=== PATIENT | female | born 1950 | race Caucasian/White ===

== ENCOUNTER 2016-07-26 10:17 | Inpatient (IN) | payer MEDICARE, MEDICAID ==
--- NOTE | 2016-07-26 10:26 | EDPRACDOC ---
- General Information Information Source: Patient, Retirement, [employer] Mode Of Arrival: Ambulance - History of Present Illness Onset: 3 days HPI: Patient reports being treated for PNA, EMS was called out for allergic reaction although patient has increased SOB since this AM, and feeling "jittery" after Albuterol and taking Levaquin. Patient reports she has had a productive cough - yellow sputum, fever, chills, nausea. Had PNA on 07/10/16, then found out again 3 days ago she had it again. Patient denies CP. No ear pain, sore throat, abdominal pain or vomiting. Patient has no rash, itching, no mouth/tongue swelling, no evidence of an allergic reaction. EMS found patient at 80% on 2L O2 which she wears continuously. Shortness of Breath: Moderate Relevant History: Reports: COPD Cough: Reports: Productive, Yellow Ear Symptoms: Reports: None SOB Worsens with: Reports: Movement, Coughing, Lying Flat Associated Signs and symptoms: Reports: Cough, Fever, Nausea <Brinda Doe - Last Filed: 07/26/16 10:27> <Amanda Higginbotham - Last Filed: 07/26/16 11:48> - General Information Chief Complaint: Dyspnea/Resp distress Stated Complaint: SHOB Time Seen by Provider: 07/26/16 10:19 Home Medications: Home Medications Acetaminophen [Tylenol Extra Strength] 1,000 mg PO Q6H PRN 07/26/16 Albuterol/Ipratropium Neb [Duoneb] 3 ml NEB Q4H PRN 07/26/16 Albuterol/Ipratropium Neb [Duoneb] 3 ml NEB Q6H PRN 07/26/16 Alprazolam [Xanax] 0.5 mg PO TID 07/26/16 Alprazolam [Xanax] 1 mg PO QHS 07/26/16 Buspirone HCl [Buspar] 15 mg PO BID 07/26/16 Ergocalciferol (Vitamin D2) [Drisdol] 50,000 unit PO .MONTHLY 07/26/16 Fenofibrate,Micronized [Fenofibrate] 67 mg PO DAILY 07/26/16 Ferrous Sulfate [Iron] 325 mg PO DAILY 07/26/16 Fluticasone Propionate [Flonase] 2 spray NADER DAILY PRN 07/26/16 Fluticasone Propionate [Flovent Hfa-220] 2 puff INH BID 07/26/16 Furosemide [Lasix] 40 mg PO DAILY 07/26/16 Gabapentin 100 mg PO BID 07/26/16 Guaifenesin [Robitussin] 10 ml PO Q6H PRN 07/26/16 Insulin Glargine [Lantus Pen] 30 unit SQ BID 07/26/16 Levofloxacin [Levaquin] 750 mg PO .DAILY X 7D 07/26/16 Omeprazole 40 mg PO BID 07/26/16 Ondansetron HCl [Zofran] 8 mg PO TID 07/26/16 Oxycodone HCl [Roxicodone] 5 mg PO Q6H PRN 07/26/16 Oxycodone HCl [Roxicodone] 5 mg PO TID 07/26/16 Phosp Acid/Dextrose/Fructose [Emetrol Oral Solution] 2 tbsp PO [id number] PRN Potassium Chloride [Klor-Con M20] 40 meq PO DAILY 07/26/16 Ranitidine HCl 150 mg PO BID 07/26/16 Sennosides [Senexon] 17.2 mg PO DAILY PRN 07/26/16 Sertraline HCl 100 mg PO DAILY 07/26/16 Sucralfate [Carafate] 1 gm PO QID 07/26/16 Temazepam [Restoril] 7.5 mg PO QHS 07/26/16 Tiotropium [place] [Spiriva] 18 mcg INH DAILY 07/26/16 Trazodone HCl [Desyrel] 50 mg PO QHS 07/26/16 Vitamin B Complex [B Complete] 1 tab PO DAILY 07/26/16 Allergies/Adverse Reactions: Allergies Allergy/AdvReac Type Severity Reaction Status Date / Time aspirin Allergy unknown Verified 08/10/12 20:16 NSAIDS (Non-Steroidal Allergy unknown Verified 08/10/12 20:16 Anti-Inflamma Penicillins Allergy unknown Verified 08/10/12 20:16 saccharin Allergy unknown Verified 08/10/12 20:16 Sulfa (Sulfonamide Allergy unknown Verified 08/10/12 20:16 Antibiotics) [Sulfa(Sulfonamide Antibiotics)] Tetracyclines Allergy unknown Verified 08/10/12 20:16 - Treatment Prior to ED Arrival Reported Medications/Treatment T[employer] APPRAISER Meds/Treatments Given O2 via Cannula,Neb Treatment(Albuterol) EMS Treatment ALS,EKG IV Yes <Amanda Higginbotham - Last Filed: 07/26/16 11:48> ED Past Medical History - History Reviewed Yes Nurses notes reviewed and agree except as marked - Patient Medical History Neurological History: Denies: Cerebrovascular Accident, Seizures, Dementia, Epilepsy, [place] Syndrome, Parkinson's, Multiple Sclerosis, Myasthenia Gravis Cardiac History: Reports: Hypertension. Denies: Coronary Artery Disease, Atrial Fibrillation, Congestive Heart Failure, Heart Attack, Pacemaker, Cardiomyopathy, Valvular Heart Disease, Syncope Respiratory History: Reports: COPD, Pneumonia. Denies: Asthma, Chronic Bronchitis, Emphysema, Pulmonary Embolism GI/ History: Reports: Urinary Tract Infection. Denies: Renal Disease, Renal Failure, Kidney Stones, Liver Failure, Ulcer, Pancreatitis Musculoskeletal History: Reports: Arthritis, Osteoarthritis. Denies: Gout, Rheumatoid Arthritis Psychological History: Reports: Depression, Anxiety. Denies: Schizophrenia, Bipolar Disorder Systemic History: Reports: Diabetes. Denies: Cancer Surgical History: Reports: Hysterectomy, Hernia Surgery, Tonsillectomy/ Adnoidectomy - Family Medical History Reports: Hypertension, Diabetes, Cancer (Father-prostate). Denies: Stroke, Cardiac Disorders <Brinda Doe - Last Filed: 07/26/16 10:27> EDM Review of Systems - Review of Systems ROS Negative Except as Marked: Yes All systems reviewed and were negative except as marked Constitutional: Chills, Fever Eyes: No Symptoms Reported Ears: No Symptoms Reported Throat: No Symptoms Reported Nose: No Symptoms Reported Mouth: No Symptoms Reported Respiratory: Cough, Shortness of Breath, Wheezing, Sputum Cardiovascular: No Symptoms Reported Gastrointestinal: Nausea Genitourinary: No Symptoms Reported Neurological: No Symptoms Reported Musculoskeletal: No Symptoms Reported <Brinda Doe - Last Filed: 07/26/16 10:27> - Physical Exam Constitutional: Alert (Awake), No apparent distress Oriented to: Time, Person, Place Last recorded Vital Signs: Oxygen Pulse Oxygen Saturation O2 Device Oxygen Flow Rate Fraction of Inspired Oxygen ( FIO2) - HEENT Head: Normal ( normocephalic) Eye Exam: Normal (PERRL, EOMI, Sclera white) Nose: No Symptoms Reported (septum midline) Neck: Normal (FROM, trachea at midline) - Respiratory/Cardiovascular Respiratory: Rhonchi, Wheezes Cardiovascular: Normal (RRR without murmur, gallop or rub) - GI Auscultation: Normal (NABS) Tenderness: Non tender - Musculoskeletal Back: Normal (Non-Tender) Extremities: Normal (Normal tone, Pulses 2+ No cyanosis or edema, FROM) - Integumentary Skin: Normal, Warm, Dry Lymphatics: Normal (no adenopathy) - Neurologic Memory Impaired: Normal Motor Function: Normal (Normal tone, Pulses 2+ No cyanosis or edema, FROM) Mood Description: Normal Thought: Coherent <Brinda Doe - Last Filed: 07/26/16 10:27> - Physical Exam Last recorded Vital Signs: Last Vital Signs Temp 98.9 F 07/26/16 10: Pulse 84 07/26/16 11:33 Resp 20 07/26/16 11:33 BP 115/72 07/26/16 11:33 Pulse Ox 92 07/26/16 11:33 Oxygen Pulse Oxygen Saturation 92 O2 Device BiPAP Oxygen Flow Rate 2 Fraction of Inspired Oxygen ( 40 FIO2) <Amanda Higginbotham - Last Filed: 07/26/16 11:48> ED SOB MDM - EKG EKG #1 EKG Time: 10:25 -: Yes EKG interpreted by me Rate: bpm: 87 [place]: Normal Rhythm: NSR Block: None ST: Ant <Brinda Doe - Last Filed: 07/26/16 10:27> - Results Result Diagrams: 07/26/16 10:35 07/26/16 10:35 Results: WBC 7.6 xk/uL (3.8-10.8) 07/26/16 10:35 RBC 4.78 xM/uL (4.20-5.40) 07/26/16 10:35 Hgb 12.1 g/dL (12.0-16.0) 07/26/16 10:35 Hct 38.7 % (36-47) 07/26/16 10:35 MCV 81 fL (81-99) 07/26/16 10:35 MCH 25.3 pg (27-32) L 07/26/16 10:35 MCHC 31.3 g/dl (33-36) L 07/26/16 10:35 RDW 17.4 % (11.5-14.5) H 07/26/16 10:35 Plt Count 227 xk/uL (130-400) 07/26/16 10:35 MPV 7.0 fL (7.4-10.4) L 07/26/16 10:35 Neut % (Auto) 83.5 % (45-76) H 07/26/16 10:35 Lymph % (Auto) 9.8 % (17-44) L 07/26/16 10:35 [place] % (Auto) 5.4 % (3-10) 07/26/16 10:35 Eos % (Auto) 0.9 % (0-5) 07/26/16 10:35 Baso % (Auto) 0.4 % (0-2) 07/26/16 10:35 Absolute Neuts (auto) 6.31 xk/uL (1.7-8.2) 07/26/16 10:35 Absolute Lymphs (auto) 0.68 xk/uL (0.65-4.75) 07/26/16 10:35 PT 10.6 SEC (9.2-11.2) 07/26/16 10:35 INR 1.0 07/26/16 10:35 APTT 24.3 SEC (22-35) 07/26/16 10:35 Puncture Site Right radial 07/26/16 10:36 pH 7.410 pH UNITS (7.35-7.45) 07/26/16 10:36 pCO2 77.0 mmHg (35-45) H* 07/26/16 10:36 pO2 44.0 mmHg (80-100) L* 07/26/16 10:36 HCO3 48.8 MMOL/L (22-26) H 07/26/16 10:36 Total CO2 51.2 MMOL/L (23-27) H 07/26/16 10:36 Base Excess 19.7 (+/- 2) H 07/26/16 10:36 FiO2 % 2lpmnc 07/26/16 10:36 Specimen Drawn By Arlene 07/26/16 10:36 Sodium 139 mEq/L (137-146) 07/26/16 10:35 Potassium 4.5 mEq/L (3.5-5.1) 07/26/16 10:35 Chloride 92 mEq/L (98-107) L 07/26/16 10:35 Carbon Dioxide 39 mMOL/L (22-33) H 07/26/16 10:35 Anion Gap 13 mEq/L (8-16) 07/26/16 10:35 BUN 14 MG/DL (7-17) 07/26/16 10:35 Creatinine 0.70 MG/DL (0.52-1.04) 07/26/16 10:35 Estimated GFR (MDRD) > 60 mL/min (>=60) 07/26/16 10:35 Glucose 118 MG/DL (70-99) H 07/26/16 10:35 Calculated Osmolality 270 MOs/Kg (270-290) 07/26/16 10:35 Calcium 9.1 MG/DL (8.4-10.2) 07/26/16 10:35 Corrected Calcium 9.4 MG/DL (8.4-10.2) 07/26/16 10:35 Total Bilirubin 0.4 MG/DL (0.2-1.3) 07/26/16 10:35 AST 19 IU/L (14-36) 07/26/16 10:35 ALT 21 IU/L (9-52) 07/26/16 10:35 Alkaline Phosphatase 73 IU/L (55-165) 07/26/16 10:35 Creatine Kinase 34 IU/L (30-134) 07/26/16 10:35 Troponin I < 0.01 ng/mL (<.04) 07/26/16 10:35 [id number] Pept 140 pg/mL (0-900) 07/26/16 10:35 Total Protein 7.0 G/DL (6.3-8.2) 07/26/16 10:35 Albumin 3.7 G/DL (3.5-5.0) 07/26/16 10:35 Urine Color Yellow 07/26/16 10:45 Urine Clarity Hazy 07/26/16 10:45 Urine pH 7.0 (5.0-8.0) 07/26/16 10:45 Ur Specific [place] 1.010 (1.003-1.035) 07/26/16 10:45 Urine Protein Neg (NEG/TRACE) 07/26/16 10:45 Urine Glucose (UA) Neg (NEGATIVE) 07/26/16 10:45 Urine Ketones Neg (NEGATIVE) 07/26/16 10:45 Urine Occult Blood Neg (NEG/TRACE) 07/26/16 10:45 Urine Nitrite Neg (NEGATIVE) 07/26/16 10:45 Urine Bilirubin Neg (NEGATIVE) 07/26/16 10:45 Urine Urobilinogen 0.2 MG/DL (0-1) 07/26/16 10:45 Ur Leukocyte Esterase Neg (NEGATIVE) 07/26/16 10:45 Urine RBC 0-2 (0-5) 07/26/16 10:45 Urine WBC 0-2 (0-5) 07/26/16 10:45 Ur Epithelial Cells 3+ 07/26/16 10:45 Urine Bacteria 2+ (NEG/FEW) H 07/26/16 10:45 Hyaline Casts 2-5 (0-2) H 07/26/16 10:45 Urine Mucus Sm amt (NEG/OCC) 07/26/16 10:45 Lab Results 07/26/16 07/26/16 07/26/16 10:45 10:36 10:35 WBC RBC Hgb Hct MCV MCH MCHC RDW Plt Count MPV Neut % (Auto) Lymph % (Auto) [place] % (Auto) Eos % (Auto) Baso % (Auto) Absolute Neuts (auto) Absolute Lymphs (auto) PT 10.6 INR 1.0 APTT 24.3 Puncture Site Right radial pH 7.410 pCO2 77.0 H* pO2 44.0 L* HCO3 48.8 H Total CO2 51.2 H Base Excess 19.7 H FiO2 % 2lpmnc Specimen Drawn By Belja Sodium Potassium Chloride Carbon Dioxide Anion Gap BUN Creatinine Estimated GFR (MDRD) Glucose Calculated Osmolality Calcium Corrected Calcium Total Bilirubin AST ALT Alkaline Phosphatase Creatine Kinase Troponin I Qvm-M-Ijhlyjoqsia Pept Total Protein Albumin Urine Color Yellow Urine Clarity Hazy Urine pH 7.0 Ur Specific [place] 1.010 Urine Protein Neg Urine Glucose (UA) Neg Urine Ketones Neg Urine Occult Blood Neg Urine Nitrite Neg Urine Bilirubin Neg Urine Urobilinogen 0.2 Ur Leukocyte Esterase Neg Urine RBC 0-2 Urine WBC 0-2 Ur Epithelial Cells 3+ Urine Bacteria 2+ H Hyaline Casts 2-5 H Urine Mucus Sm amt 07/26/16 07/26/16 10:35 10:35 WBC 7.6 RBC 4.78 Hgb 12.1 Hct 38.7 MCV 81 MCH 25.3 L MCHC 31.3 L RDW 17.4 H Plt Count 227 MPV 7.0 L Neut % (Auto) 83.5 H Lymph % (Auto) 9.8 L [place] % (Auto) 5.4 Eos % (Auto) 0.9 Baso % (Auto) 0.4 Absolute Neuts (auto) 6.31 Absolute Lymphs (auto) 0.68 PT INR APTT Puncture Site pH pCO2 pO2 HCO3 Total CO2 Base Excess FiO2 % Specimen Drawn By Sodium 139 Potassium 4.5 Chloride 92 L Carbon Dioxide 39 H Anion Gap 13 BUN 14 Creatinine 0.70 Estimated GFR (MDRD) > 60 Glucose 118 H Calculated Osmolality 270 Calcium 9.1 Corrected Calcium 9.4 Total Bilirubin 0.4 AST 19 ALT 21 Alkaline Phosphatase 73 Creatine Kinase 34 Troponin I < 0.01 Tvn-[id number]-Hramcpthnms Pept 140 Total Protein 7.0 Albumin 3.7 Urine Color Urine Clarity Urine pH Ur Specific [place] Urine Protein Urine Glucose (UA) Urine Ketones Urine Occult Blood Urine Nitrite Urine Bilirubin Urine Urobilinogen Ur Leukocyte Esterase Urine RBC Urine WBC Ur Epithelial Cells Urine Bacteria Hyaline Casts Urine Mucus <Amanda Higginbotham - Last Filed: 07/26/16 11:48> ED Critical Care Note - Critical Care Note Total Time (mins): 30 <Amanda Higginbotham - Last Filed: 07/26/16 11:48> <Brinda Doe - Last Filed: 07/26/16 10:27> - Departure Yes I personally saw and evaluated the patient. Disposition: Admit IP To This Hospital Education/Counseling Given To: Patient Education/Counseling Given Regarding: Diagnosis, Treatment, Follow Up Decision to Admit Time: 11:48 Decision to admit date: 07/26/16 Decision to admit: from ED - Physician Consulted Hospitalist Provider Called: Yaa Veliz <Amanda Higginbotham - Last Filed: 07/26/16 11:48> - Departure Condition: Serious Final Diagnosis: REJI PNEUMONIA, COPD with acute exacerbation, Acute respiratory failure with hypoxia and hypercarbia Referrals: Bebo Samaniego MD [Primary Care Provider] - One Week
[2016-07-26] MEDS ORDERED: METHYLPREDNISOLONE 125 MG/2 ML VIAL IV ONE (10:31)
[2016-07-26 10:41] LABS: ALLEN'S TEST PASS; BEb 19.7 (+/- 2); TCO2 51.2 MMOL/L (23-27)
[2016-07-26 10:43] LABS: ABG Draw Site Right Radial
[2016-07-26] MEDS ORDERED: ONDANSETRON HCL 4 MG/2 ML VIAL IV ONE (10:46)
[2016-07-26 10:50] LABS: AUTOMATED BASOPHIL 0.4 % (0-2); AUTOMATED EOSINOPHIL 0.9 % (0-5); AUTOMATED LYMPH 9.8 % (17-44); AUTOMATED MONOCYTE 5.4 % (3-10); AUTOMATED NEUTROPHIL 83.5 % (45-76)
[2016-07-26 11:01] LABS: PARTIAL THROMB. TIME 24.3 SEC (22-35)
[2016-07-26] MEDS ORDERED: LORAZEPAM 2 MG/ML VIAL IV ONE (11:01)
[2016-07-26 11:02] LABS: BLOOD UREA NITROGEN 14 MG/DL (7-17); CALC CORRECTED 9.4 MG/DL (8.4-10.2); CALCIUM 9.1 MG/DL (8.4-10.2); CALCULATED OSMOLALITY 270 MOs/Kg (270-290); CHLORIDE 92 mEq/L (98-107); GLUCOSE 118 MG/DL (70-99); SODIUM LEVEL 139 mEq/L (137-146)
[2016-07-26 11:03] LABS: LEUKOCYTES/URINE NEG (NEGATIVE); NITRITE/URINE NEG (NEGATIVE); RBC/URINE 0-2 (0-5); URINE OCCULT BLOOD NEG (NEG/TRACE); WBC/URINE 0-2 (0-5)
[2016-07-26 11:24] LABS: CPK TOTAL WITH POSSIBLE MB 34 IU/L (30-134)
--- NOTE | 2016-07-26 11:40 | DIRPT ---
CLINICAL DATA: Shortness of breath with fever and congestion EXAM: PORTABLE CHEST 1 VIEW COMPARISON: Chest radiograph July 28, 2014; chest CT April 03, 2016 FINDINGS: There is persistent airspace opacity in the left upper lobe which probably represents post radiation therapy change given the appearance on prior CT. There is no new parenchymal lung opacity. Heart size and pulmonary vascularity are normal. No adenopathy is appreciable by radiography. There is postoperative change in the lower cervical spine. IMPRESSION: Probable post radiation therapy change in the left upper lobe with scarring. Superimposed infiltrate in this area cannot be excluded by radiography. Lungs elsewhere clear. Cardiac silhouette within normal limits. No well-defined parenchymal lung mass is seen by radiography. Electronically Signed By: Merritt Abraham III, M.D. On: 07/26/2016 11:37
[2016-07-26] MEDS ORDERED: CEFEPIME HYDROCHLORIDE 2 GM in D5W 100 ML IV ONE ×2 (11:44→12:30)
[2016-07-26 12:08] LABS: ALLEN'S TEST PASS; BEb 18.9 (+/- 2); TCO2 50.9 MMOL/L (23-27)
[2016-07-26 12:09] LABS: ABG Draw Site Right Radial
[2016-07-26 12:10] LABS: SPONT. RR 20 BR/MIN; SPONT. VT 400 ML
[2016-07-26] MEDS ORDERED: OXYCODONE HCL 5 MG TABLET PO PRN (12:38)
[2016-07-26] MEDS ORDERED: Albuterol/Ipratropium Neb 3 ML NEB NEB PRN (12:38)
[2016-07-26] MEDS ORDERED: SODIUM CHLORIDE 0.9% 5 ML FLUSH FLUSH PRN (12:41)
[2016-07-26] MEDS ORDERED: MAGNESIUM HYDROXIDE 30 ML BOTTLE PO PRN (12:41)
[2016-07-26] MEDS ORDERED: Aluminum;Magnesium;Simethicone 30 ML UDC PO PRN (12:41)
[2016-07-26] MEDS ORDERED: SODIUM CHLORIDE 0.9% 3 ML FLUSH FLUSH PRN (12:41)
--- NOTE | 2016-07-26 12:50 | HISTPHYS ---
- Chief Complaint Patient is resident of [facility], sent to ED for continued cough, congestion , fever and weakness. Patient diagnosed with Pneumonia on Saturday, started Levaquin and developed shaking and tremors today. EMS arrival patient on 2lmin via [place] and sats 80% - History of Present Illness Patient reports being treated for PNA, EMS was called out for allergic reaction although patient has increased SOB since this AM, and feeling "jittery" after Albuterol and taking Levaquin. Patient reports she has had a productive cough - yellow sputum, fever, chills, nausea. Had PNA on 07/10/16, then found out again 3 days ago she had it again. Patient denies CP. No ear pain, sore throat, abdominal pain or vomiting. Patient has no rash, itching, no mouth/tongue swelling, no evidence of an allergic reaction. EMS found patient at 80% on 2L O2 which she wears continuously. Shortness of Breath: Moderate Relevant History: Reports: COPD Cough: Reports: Productive, Yellow Ear Symptoms: Reports: None SOB Worsens with: Reports: Movement, Coughing, Lying Flat Associated Signs and symptoms: Reports: Cough, Fever, Nausea - Medical History Cardiac History: Reports: Hypertension. Denies: Coronary Artery Disease, Atrial Fibrillation, Congestive Heart Failure, Heart Attack, Pacemaker, Cardiomyopathy, Valvular Heart Disease, Syncope Respiratory History: Reports: COPD, Pneumonia. Denies: Asthma, Chronic Bronchitis, Emphysema, Pulmonary Embolism GI/ History: Reports: Urinary Tract Infection. Denies: Renal Disease, Renal Failure, Kidney Stones, Liver Failure, Ulcer, Pancreatitis Musculoskeletal History: Reports: Arthritis, Osteoarthritis. Denies: Gout, Rheumatoid Arthritis Systemic History: Reports: Diabetes. Denies: Cancer Neurological History: Denies: Cerebrovascular Accident, Seizures, Dementia, Epilepsy, Guillian-Pearland Syndrome, Parkinson's, Multiple Sclerosis, Myasthenia Gravis Psychological History: Reports: Depression, Anxiety. Denies: Schizophrenia, Bipolar Disorder - Surgical History Reports: Hysterectomy, Hernia Surgery, Tonsillectomy/Adnoidectomy - Medictions/Allergies Allergies aspirin Allergy (Verified 08/10/12 20:16) unknown Allergy info from [facility]. NSAIDS (Non-Steroidal Anti-Inflamma Allergy (Verified 08/10/12 20:16) unknown Allergy info from [facility] records. Penicillins Allergy (Verified 08/10/12 20:16) unknown Allergy info from [facility] records. saccharin Allergy (Verified 08/10/12 20:16) unknown Allergy info from [facility] records. Sulfa (Sulfonamide Antibiotics) [Sulfa(Sulfonamide Antibiotics)] Allergy ( Verified 08/10/12 20:16) unknown Allergy info from [facility] records. Tetracyclines Allergy (Verified 08/10/12 20:16) unknown Allergy info from [facility] records. Current Medication List: Reviewed Home Medications Acetaminophen [Tylenol Extra Strength] 1,000 mg PO Q6H PRN 07/26/16 Albuterol/Ipratropium Neb [Duoneb] 3 ml NEB Q4H PRN 07/26/16 Albuterol/Ipratropium Neb [Duoneb] 3 ml NEB Q6H 07/26/16 Alprazolam [Xanax] 0.5 mg PO TID 07/26/16 Alprazolam [Xanax] 1 mg PO QHS 07/26/16 Buspirone HCl [Buspar] 15 mg PO BID 07/26/16 Ergocalciferol (Vitamin D2) [Drisdol] 50,000 unit PO .MONTHLY 07/26/16 Fenofibrate,Micronized [Fenofibrate] 67 mg PO DAILY 07/26/16 Ferrous Sulfate [Iron] 325 mg PO DAILY 07/26/16 Fluticasone Propionate [Flonase] 2 spray NADER DAILY PRN 07/26/16 Fluticasone Propionate [Flovent Hfa-220] 2 puff INH BID 07/26/16 Furosemide [Lasix] 40 mg PO DAILY 07/26/16 Gabapentin 100 mg PO BID 07/26/16 Guaifenesin [Robitussin] 10 ml PO Q6H PRN 07/26/16 Insulin Glargine [Lantus Pen] 30 unit SQ BID 07/26/16 Levofloxacin [Levaquin] 750 mg PO .DAILY X 7D 07/26/16 Omeprazole 40 mg PO BID 07/26/16 Ondansetron HCl [Zofran] 8 mg PO TID 07/26/16 Oxycodone HCl [Roxicodone] 5 mg PO Q6H PRN 07/26/16 Oxycodone HCl [Roxicodone] 5 mg PO TID 07/26/16 Phosp Acid/Dextrose/Fructose [Emetrol Oral Solution] 2 tbsp PO [id number] PRN Potassium Chloride [Klor-Con M20] 40 meq PO DAILY 07/26/16 Ranitidine HCl 150 mg PO BID 07/26/16 Sennosides [Senexon] 17.2 mg PO DAILY PRN 07/26/16 Sertraline HCl 100 mg PO DAILY 07/26/16 Sucralfate [Carafate] 1 gm PO QID 07/26/16 Temazepam [Restoril] 7.5 mg PO QHS 07/26/16 Tiotropium [place] [Spiriva] 18 mcg INH DAILY 07/26/16 Trazodone HCl [Desyrel] 50 mg PO QHS 07/26/16 Vitamin B Complex [B Complete] 1 tab PO DAILY 07/26/16 - Family History Reports: Hypertension, Diabetes, Cancer (Father-prostate). Denies: Stroke, Cardiac Disorders - Social History Travel Outside of [place] in the Last 3 Months?: No Lives: in Assisted Living Smoking Status: Light tobacco smoker (less than 5/day) Social History: Denies: Alcohol Use, Substance Use Disorder - Review of Systems Yes Review of systems cannot be obtained due to the patient's medical condition - Physical Exam Vital Signs: Initial Vitals Temperature 98.9 F 07/26/16 10:17 Pulse Rate 92 07/26/16 10:17 Respiratory Rate 26 H 07/26/16 10:17 Blood Pressure 134/63 07/26/16 10:17 Pulse Oxygen Saturation 78 L 07/26/16 10:17 Constitutional: Distress (Moderate on continuous BiPAP) Oriented to: Time, Person - HEENT Head: Normal (normocephalic, atraumatic.), Other (No cervical lymphadenopathy. No supraclavicular lymphadenopathy. Neck: No palpable mass, supple , trachea midline.) Eye: Normal (pupils equal, reactive to light, and round; EOMI, Sclera white) Oropharynx: Normal (Pharynx: Moist without exudate,Gums-no swelling, No oropharyngeal lesions or erythema, Mucous membranes are dry.) Nose: No Symptoms Reported (septum midline, Nares patent, without discharge or bleeding.) Respiratory: Diminished, Rhonchi, Wheezes. negative: Tachypnea Cardiovascular: Normal (RRR , Normal S1, S2. No murmurs, rubs, or gallops. PMI non-displaced. Carotids: no carotid bruits. No bradycardia or tachycardia. DP pulses 2+ bilaterally.) - GI Auscultation: Normal (normal active sounds) Palpation: Normal (Soft,non distended,nontender. No hepatosplenomegaly.) Tenderness: Non tender (No rebound or guarding) Koroma's Sign: Negative - Musculoskeletal Back: Normal (Non-Tender) Extremities: Normal (Normal tone, DP pulses 2+ bilaterally, No cyanosis or edema bilaterally, FROM bilaterally.) - Integumentary Skin: Normal (Clean, dry, and intact. No rashes. No lesions.) Lymphatics: Normal (No cervical lymphadenopathy. No supraclavicular lymphadenopathy.) - Neurologic Memory Impaired: Normal Motor Function: Normal (Motor 5/5 throughout.Normal tone, Pulses 2+ No cyanosis or edema, FROM) Cranial Nerve: Normal (CN II-XII intact sensation, strength 5/5) Cerebellar: Normal (Babinski: toes downgoing bilaterally. Intact Finger to nose. Sensory grossly intact to light touch. Intact rapid alternating movements bilaterally. No pronator drift.) Mood Description: Normal (Fully oriented. Normal and appropriate affect.) Perception: Normal (Normal and appropriate affect.) - Focused CV Perfusion Exam Vital Signs: Last Vital Signs Temp 98.9 F 07/26/16 10:17 Pulse 80 07/26/16 12:03 Resp 22 07/26/16 12:03 BP 120/76 07/26/16 12:03 Pulse Ox 91 07/26/16 12:19 - Lab Results Laboratory Results - last 24 hr 07/26/16 07/26/16 07/26/16 10:35 10:35 10:35 WBC 7.6 RBC 4.78 Hgb 12.1 Hct 38.7 MCV 81 MCH 25.3 L MCHC 31.3 L RDW 17.4 H Plt Count 227 MPV 7.0 L Neut % (Auto) 83.5 H Lymph % (Auto) 9.8 L [place] % (Auto) 5.4 Eos % (Auto) 0.9 Baso % (Auto) 0.4 Absolute Neuts (auto) 6.31 Absolute Lymphs (auto) 0.68 PT 10.6 INR 1.0 APTT 24.3 Puncture Site pH pCO2 pO2 HCO3 Total CO2 Base Excess Vent Mode Spontaneous Rate FiO2 % Spontaneous Tidal Vol Specimen Drawn By Sodium 139 Potassium 4.5 Chloride 92 L Carbon Dioxide 39 H Anion Gap 13 BUN 14 Creatinine 0.70 Estimated GFR (MDRD) > 60 Glucose 118 H Calculated Osmolality 270 Calcium 9.1 Corrected Calcium 9.4 Total Bilirubin 0.4 AST 19 ALT 21 Alkaline Phosphatase 73 Creatine Kinase 34 Troponin I < 0.01 [id number]-Gbilfkcnfmx Pept 140 Total Protein 7.0 Albumin 3.7 Urine Color Urine Clarity Urine pH Ur Specific Sharon Urine Protein Urine Glucose (UA) Urine Ketones Urine Occult Blood Urine Nitrite Urine Bilirubin Urine Urobilinogen Ur Leukocyte Esterase Urine RBC Urine WBC Ur Epithelial Cells Urine Bacteria Hyaline Casts Urine Mucus 07/26/16 07/26/16 07/26/16 10:36 10:45 12:00 WBC RBC Hgb Hct MCV MCH MCHC RDW Plt Count MPV Neut % (Auto) Lymph % (Auto) [place] % (Auto) Eos % (Auto) Baso % (Auto) Absolute Neuts (auto) Absolute Lymphs (auto) PT INR APTT Puncture Site Right radial Right radial pH 7.410 7.390 pCO2 77.0 H* 80.0 H* pO2 44.0 L* 67.0 L HCO3 48.8 H 48.4 H Total CO2 51.2 H 50.9 H Base Excess 19.7 H 18.9 H Vent Mode Bipap12/6 Spontaneous Rate 20 FiO2 % 2lpmnc 0.40 Spontaneous Tidal Vol 400 Specimen Drawn By Belja Belcory Sodium Potassium Chloride Carbon Dioxide Anion Gap BUN Creatinine Estimated GFR (MDRD) Glucose Calculated Osmolality Calcium Corrected Calcium Total Bilirubin AST ALT Alkaline Phosphatase Creatine Kinase Troponin I Pgu-[id number]-Rizucqydkec Pept Total Protein Albumin Urine Color Yellow Urine Clarity Hazy Urine pH 7.0 Ur Specific Sharon 1.010 Urine Protein Neg Urine Glucose (UA) Neg Urine Ketones Neg Urine Occult Blood Neg Urine Nitrite Neg Urine Bilirubin Neg Urine Urobilinogen 0.2 Ur Leukocyte Esterase Neg Urine RBC 0-2 Urine WBC 0-2 Ur Epithelial Cells 3+ Urine Bacteria 2+ H Hyaline Casts 2-5 H Urine Mucus Sm amt - Diagnostic Findings PORTABLE CHEST 1 VIEW COMPARISON: Chest radiograph July 28, 2014; chest CT April 03, 2016 FINDINGS: There is persistent airspace opacity in the left upper lobe which probably represents post radiation therapy change given the appearance on prior CT. There is no new parenchymal lung opacity. Heart size and pulmonary vascularity are normal. No adenopathy is appreciable by radiography. There is postoperative change in the lower cervical spine. IMPRESSION: Probable post radiation therapy change in the left upper lobe with scarring. Superimposed infiltrate in this area cannot be excluded by radiography. Lungs elsewhere clear. Cardiac silhouette within normal limits. No well-defined parenchymal lung mass is seen by radiography. Electronically Signed By: Merritt Abraham III, M.D. On: 07/26/2016 11:37 - Assessment (1) Acute respiratory failure with hypoxia and hypercarbia J96.01 - ACUTE RESPIRATORY FAILURE WITH HYPOXIA; J96.02 - ACUTE RESPIRATORY FAILURE WITH HYPERCAPNIA Acute Present on Admission: Yes Patient with acute respiratory failure when placed on oxygen in the emergency department her CO2 went up and she was placed on BiPAP. She will require continuous BiPAP treatment for the next 24 hours. Will monitor her response closely. (2) COPD with acute exacerbation J44.1 - CHRONIC OBSTRUCTIVE PULMONARY DISEASE W (ACUTE) EXACERBATION Acute Present on Admission: Yes Patient with wheezing long history of CHRONIC OBSTRUCTIVE PULMONARY DISEASE. Start nebulizers, O2, antibiotics, and oxygen support. (3) D-dimer, elevated R79.89 - OTHER SPECIFIED ABNORMAL FINDINGS OF BLOOD CHEMISTRY Acute Present on Admission: Yes Will check a CTA of the patient's chest given her acute change in hypoxia. Will need to rule out pulmonary embolism. It also give us an opportunity get a better view at her lungs. There is a concern about an infiltrate in the left upper lobe. (4) Type 2 diabetes mellitus E11.9 - TYPE 2 DIABETES MELLITUS WITHOUT COMPLICATIONS Acute Present on Admission: Yes Qualifiers: Diabetes mellitus complication status: with diabetic arthropathy Diabetes mellitus complication detail: with other arthropathy Diabetic retinopathy severity: D Proliferative retinopathy type: P Diabetes mellitus macular edema: D Diabetes mellitus residential insulin use: with roasterman use Laterality: L Chronic kidney disease stage: C Qualified Code(s): E11.618 - Type 2 diabetes mellitus with other diabetic arthropathy; Z79.4 - snf ( current) use of insulin Continue home medications use sliding scale insulin coverage while on steroids. (5) Pneumonia, bacterial J15.9 - UNSPECIFIED BACTERIAL PNEUMONIA Suspected Present on Admission: Yes Start cefepime and vancomycin check CT verification. - Plan Patient is requiring continuous BiPAP and has severe hypercarbia consistent with critical illness. Due to the presence of and/or the risk of deterioration, my attendance to this patient required critical care time, including assessment/reassessment, documentation, ordering and interpreting ancillary studies, discussion with staff and consultants,patient and family, and excludes time spent on separately billable procedures. In summary, this patient is acutely and critically ill. The patient requires treatment of vital organ failure and measures to prevent further life-threatening deterioration of condition. Case Care Discussed with: Patient, Nursing Staff Total Time: 55 min Critical Care: Yes Couseling Time (>50% in counseling/coordination): No
[2016-07-26] MEDS ORDERED: GLARGINE INSULIN (LANTUS) 100 UNITS/ML PEN SQ SCH (13:00)
[2016-07-26] MEDS ORDERED: FLUTICASONE PROPIONATE INH SCH ×2 (13:00→22:00)
[2016-07-26] MEDS: Albuterol/Ipratropium Neb 3 ML NEB NEB SCH ×2 (13:29→19:57)
[2016-07-26 13:37] LABS: CPK TOTAL WITH POSSIBLE MB 34 IU/L (30-134)
[2016-07-26] MEDS ORDERED: Pharmacy Review for Metformin - IV Contrast Given SCH (15:00)
[2016-07-26] MEDS ORDERED: Vaccine Screening Complete SCH (16:00)
--- NOTE | 2016-07-26 17:05 | DIRPT ---
CLINICAL DATA: Chest pain and shortness of breath. Status post surgery for lung cancer diagnosed 2 years ago. Pneumonia diagnosed 3 days ago. EXAM: CT ANGIOGRAPHY CHEST WITH CONTRAST TECHNIQUE: Multidetector CT imaging of the chest was performed using the standard protocol during bolus administration of intravenous contrast. Multiplanar CT image reconstructions and MIPs were obtained to evaluate the vascular anatomy. CONTRAST: 80 cc Isovue 370 COMPARISON: Previous examinations, including the portable chest obtained earlier today and chest CT dated 04/03/2016. FINDINGS: Mediastinum/Lymph Nodes: No pulmonary emboli or thoracic aortic dissection identified. No masses or pathologically enlarged lymph nodes identified. Lungs/Pleura: Interval 8 x 7 mm irregular nodule in the right lower lobe on image number 49 of series 4, confirmed on coronal image number 51 of series 603 and sagittal image number 43 of series 604. Stable scarring in the left upper lobe. Interval patchy opacity in the superior segment of the left lower lobe and in the lateral portions of the left upper lobe. Mild bilateral lower lobe atelectasis. Diffuse bilateral bullous changes. Upper abdomen: No significant change in a right adrenal nodule, measuring 1.8 x 1.5 cm on image number 99 and a left adrenal nodule measuring 1.1 x 0.9 cm on image number 99. These are not included in their entirety. The previously demonstrated. Low density and calcification in the spleen is unchanged. Musculoskeletal: An hemangioma in a mid thoracic vertebral body is body is unchanged. Mild compression deformity of the adjacent, more superior vertebral body is unchanged. No acute fracture lines. Also noted are thoracic spine degenerative changes and cervical spine fixation hardware. Review of the MIP images confirms the above findings. IMPRESSION: 1. Interval 8 mm irregular nodule in the right lower lobe, suspicious for and interval primary lung malignancy. 2. Interval patchy opacity in the superior segment of the left lower lobe and lateral aspect of the left upper lobe. This is concerning for pneumonia. 3. COPD with centrilobular emphysema. 4. Stable adrenal nodules and partially calcified air low density in the spleen. Electronically Signed By: Gwyn Baum M.D. On: 07/26/2016 17:02
[2016-07-26] MEDS: CEFEPIME HYDROCHLORIDE 1 GM in D5W 100 ML IV SCH ×2 (17:17→23:37)
[2016-07-26] MEDS: NS 1,000 ML IV SCH (17:19)
[2016-07-26] MEDS: NICOTINE 14 MG PATCH TOP SCH (17:19)
[2016-07-26] MEDS: ALPRAZOLAM 0.5 MG TAB PO SCH ×3 (17:23→21:58)
[2016-07-26] MEDS: OXYCODONE HCL 5 MG TABLET PO SCH ×2 (17:23→21:57)
[2016-07-26] MEDS: METHYLPREDNISOLONE 125 MG/2 ML VIAL IV SCH ×2 (17:24→21:59)
[2016-07-26] MEDS: SUCRALFATE 1 GM TAB PO SCH ×2 (17:24→21:55)
[2016-07-26] MEDS: ENOXAPARIN 40 MG/0.4 ML PFS SQ SCH (17:26)
[2016-07-26] MEDS: SODIUM CHLORIDE 0.9% 3 ML FLUSH FLUSH SCH (17:28)
[2016-07-26] MEDS: PANTOPRAZOLE 40 MG TAB PO SCH (17:29)
[2016-07-26] MEDS ORDERED: SODIUM CHLORIDE 0.9% 5 ML FLUSH FLUSH SCH (18:00)
[2016-07-26] MEDS ORDERED: Non-Formulary Medication ITEM (Omeprazole [Omeprazole] 40 MG) PO SCH (21:00)
[2016-07-26] MEDS ORDERED: BUSPIRONE HCL 15 MG PO SCH (21:00)
[2016-07-26] MEDS ORDERED: Non-Formulary Medication ITEM (Alprazolam [Xanax] 1 MG) PO SCH (21:00)
[2016-07-26] MEDS ORDERED: TEMAZEPAM 7.5 MG PO SCH (21:00)
[2016-07-26] MEDS: TRAZODONE 50 MG TAB PO SCH (21:55)
[2016-07-26] MEDS: GLARGINE INSULIN (LANTUS) 100 UNITS/ML PEN SQ SCH (21:55)
[2016-07-26] MEDS: BUSPIRONE 5 MG TAB PO SCH (21:55)
[2016-07-26] MEDS: RANITIDINE 150 MG TAB PO SCH (21:56)
[2016-07-26] MEDS: GABAPENTIN 100 MG CAP PO SCH (21:56)
[2016-07-26] MEDS: Levofloxacin 750 mg/150 ml D5W 750 MG/150 ML RTU IV SCH (21:58)
[2016-07-26] MEDS: FLUTICASONE PROPIONATE INH SCH (23:13)
[2016-07-27] MEDS: Albuterol/Ipratropium Neb 3 ML NEB NEB SCH ×4 (02:01→19:23)
[2016-07-27] MEDS: ONDANSETRON HCL 4 MG/2 ML VIAL IV PRN (02:14)
--- NOTE | 2016-07-27 03:19 | HIMCONS ---
DATE OF CONSULT: REQUESTING PHYSICIAN: Dr. Veliz. REASON FOR CONSULTATION: Respiratory failure. HISTORY OF PRESENT ILLNESS: This patient is a 65-year-old lady, who has been a shelter resident at [facility]. Initially, she was in [place] and now moved to [place]. The patient has been having history of pneumonias in the past and has had coughing, congestion, fevers, and weakness for which she was admitted to the hospital earlier today, diagnosed with pneumonia recently on Saturday and placed on Levaquin, and has had fevers and chills along. The patient's pulse ox on 2 liters oxygen was about 80%. She has been having yellowish phlegm. She has had history of lung cancer, and currently has nodules in the lungs which have been followed by somebody in [facility]. She was complaining of moderate shortness of breath with coughing, wheezing as mentioned above. Denies any hemoptysis, hematemesis, hematochezia, nausea, vomiting, or diarrhea. PAST MEDICAL HISTORY: Significant for hypertension, COPD, urinary tract infection, arthritis, osteoarthritis, diabetes, depression, and anxiety. SURGICAL HISTORY: History of hysterectomy, hernia surgery, tonsillectomy, adenoidectomy. ALLERGIES: THE PATIENT IS ALLERGIC TO ASPIRIN, NSAIDS, PENICILLIN, SACCHARIN, SULFA, AND TETRACYCLINE. MEDICATIONS: In the chart were noted. FAMILY HISTORY: Significant for diabetes and hypertension. Father had prostate cancer. SOCIAL HISTORY: The patient has been a smoker, still smoking less than 5 cigarettes a day. No history of alcohol or drug abuse. REVIEW OF SYSTEMS: Entire review of systems is negative except for as mentioned in the history of present illness. EXAMINATION: VITAL SIGNS: Temperature 98.3 degrees Fahrenheit, pulse 89, respirations 18, blood pressure 122/50, pulse ox is 94%. The patient has been on BiPAP. CHEST: Scattered bilateral wheezing. HEART: S1, S2. Regular with pansystolic murmur. EXTREMITIES: No clubbing, cyanosis, or edema. ABDOMEN: Soft and nontender. Bowel sounds are present. Hepatosplenomegaly is absent. NEURO: The patient is moving all extremities. LABORATORY DATA: White count 7.6, hemoglobin is 12.1, hematocrit is 38.7, and platelets are 227. PT/INR within normal limits. Blood gas showed a pH of 7.39, pCO2 of 80, PO2 of 67, on 12 x 6 BiPAP with 40% oxygen. Sodium 139, potassium 4.5, chloride 92, CO2 39, BUN is 14, creatinine 0.6, glucose 118. LFTs within normal limits. IMAGING: CT scan of chest was seen personally. The patient seems to have a left upper lobe scarring, most likely postradiation; in right lower lobe, 8 millimeter nodule was noted. IMPRESSION: 1. [id number]-wlsphdp respiratory failure. 2. Chronic obstructive pulmonary disease with exacerbation. 3. Cannot rule out infiltrate in the left upper lobe. 4. Right lung nodule. PLAN: The patient has been on cefepime and vancomycin. I will start the patient on Levaquin as well. The patient has been on p.o. Lasix and on Solu-Medrol 60 mg IV q.6 hours. I am hoping the patient should be improving slowly. I would continue supportive care. Would repeat chest x-ray and blood gas in the morning. Thank you very much for the consultation, and I will follow the patient with you. [id number] cc: Gonzalez Sheldon MD
[2016-07-27] MEDS: METHYLPREDNISOLONE 125 MG/2 ML VIAL IV SCH ×2 (04:08→08:11)
[2016-07-27] MEDS: OXYCODONE HCL 5 MG TABLET PO SCH ×3 (04:14→20:11)
[2016-07-27] MEDS: ALPRAZOLAM 0.5 MG TAB PO SCH ×4 (04:14→22:14)
[2016-07-27] MEDS: CEFEPIME HYDROCHLORIDE 1 GM in D5W 100 ML IV SCH ×3 (04:14→20:19)
[2016-07-27] MEDS: SODIUM CHLORIDE 0.9% 3 ML FLUSH FLUSH SCH ×2 (04:15→17:06)
[2016-07-27] MEDS: PANTOPRAZOLE 40 MG TAB PO SCH ×2 (04:15→17:06)
[2016-07-27 05:01] LABS: AUTOMATED BASOPHIL 0.1 % (0-2); AUTOMATED LYMPH 7.3 % (17-44); AUTOMATED MONOCYTE 2.9 % (3-10); AUTOMATED NEUTROPHIL 89.7 % (45-76); MPV 7.3 fL (7.4-10.4)
[2016-07-27 05:15] LABS: BLOOD UREA NITROGEN 12 MG/DL (7-17); CALCIUM 8.8 MG/DL (8.4-10.2); CALCULATED OSMOLALITY 270 MOs/Kg (270-290); CHLORIDE 93 mEq/L (98-107); GLUCOSE 178 MG/DL (70-99); SODIUM LEVEL 138 mEq/L (137-146)
[2016-07-27 05:18] LABS: ALLEN'S TEST PASS; TCO2 46.2 MMOL/L (23-27)
[2016-07-27 05:20] LABS: ABG Draw Site Right Radial; ABG Draw Tech BKL
[2016-07-27] MEDS: FLUTICASONE PROPIONATE INH SCH ×2 (07:49→19:30)
[2016-07-27] MEDS ORDERED: PNEUMOCOCCAL 0.5 ML VIAL IM ONE (08:00)
[2016-07-27] MEDS ORDERED: FLU VACCINE (Afluria) 0.5 ML DOSE IM ONE (08:00)
[2016-07-27] MEDS: SUCRALFATE 1 GM TAB PO SCH ×4 (08:08→22:14)
[2016-07-27] MEDS: POTASSIUM CHLORIDE 20 MEQ TAB PO SCH (08:09)
[2016-07-27] MEDS: BUSPIRONE 5 MG TAB PO SCH ×2 (08:09→22:15)
[2016-07-27] MEDS: GLARGINE INSULIN (LANTUS) 100 UNITS/ML PEN SQ SCH ×2 (08:10→22:16)
[2016-07-27] MEDS: FUROSEMIDE 40 MG TAB PO SCH (08:11)
[2016-07-27] MEDS: GABAPENTIN 100 MG CAP PO SCH ×2 (08:11→22:14)
[2016-07-27] MEDS: SERTRALINE HCL 100 MG TAB PO SCH (08:11)
[2016-07-27] MEDS: RANITIDINE 150 MG TAB PO SCH ×2 (08:11→22:14)
--- NOTE | 2016-07-27 08:38 | DIRPT ---
CLINICAL DATA: Respiratory failure EXAM: PORTABLE CHEST 1 VIEW COMPARISON: CT chest 07/26/2016. Chest x-ray 07/26/2016 FINDINGS: Left hilar prominence is unchanged compatible with prominent left pulmonary artery and adjacent scarring. Patchy infiltrate lateral to the left hilum may be slightly improved and could represent superimposed pneumonia. Review of the recent CT scan shows progression of airspace disease in the superior segment of the left lower lobe compared with prior baseline studies. This could represent pneumonia. Negative for heart failure or effusion. Mild right lower lobe atelectasis again noted. IMPRESSION: Left perihilar scarring noted. Possible superimposed infiltrate in the superior segment left lower lobe which may be slightly improved from prior studies. Electronically Signed By: Manuel Catherine M.D. On: 07/27/2016 08:36
[2016-07-27] MEDS ORDERED: DEXTROSE 25 GM/50 ML PFS IV PRN (08:46)
[2016-07-27] MEDS ORDERED: GLUCOSE (ORAL GEL) 15 GM TUBE PO PRN (08:46)
[2016-07-27] MEDS ORDERED: GLUCAGON 1 MG VIAL SQ PRN (08:46)
[2016-07-27] MEDS ORDERED: Non-Formulary Medication ITEM (Tiotropium Bromide [Spiriva] 18 MCG) INH SCH (09:00)
--- NOTE | 2016-07-27 09:19 | PCM.PULM ---
Chief Complaint: Respiratory failure acute on chronic with hypoxia Bacterial pneumonia COPD exacerbation DM type II Uneventful overnight with no acute distress. Patient breathing is better. On BIPAP over night and VM Current complaints: SOB, PARKER,cough,wheeze, sputum Medication list and notes reviewed:yes DVT prophylaxis:yes - Physical Examination Vital Signs and I&O: Last Vital Signs Temp 97.1 F L 07/27/16 08:50 Pulse 87 07/27/16 08:50 Resp 22 07/27/16 08:50 BP 133/57 L 07/27/16 08:50 Pulse Ox 90 L 07/27/16 08:50 Oxygen Pulse Oxygen Saturation 90 O2 Device Venturi Mask Oxygen Flow Rate 12 Fraction of Inspired Oxygen ( 50 FIO2) Intake & Output 07/24/16 07/25/16 07/26/16 07/27/16 23:59 23:59 23:59 23:59 Intake Total 846 1141 Output Total 1475 1700 Balance -629 -559 Patient's weight 91.036 kg 87.997 kg General: Alert, Oriented x3, Cooperative, Mild distress, Obese, Weakness, Fatigue Respiratory: Diminished, Rhonchi Cardiovascular: Regular rate, Regular rate and rhythm, Normal S1, No Gallops, Rubs/Murmurs, Normal S2, Good Pedal Pulses (Dp Pulses 2+ bilaterally) GI: Normal bowel sounds, Soft, Non tender, No hepatospenomegaly, No masses, Obese Extremities/Musculoskeletal: Normal pulses Skin: Warm,Dry and Intact, No rashes, No breakdown, No significant lesion Neurological: Normal Steady Gait, Normal speech, Normal tone, Cranial nerves 3- 12 NL Psych/Mental Status: Appropriate, Cooperative, Anxious Result Diagrams: 07/27/16 04:50 07/27/16 04:50 Labs (last 24 hours): Laboratory Results - last 24 hr 07/26/16 07/26/16 07/26/16 13:17 15:26 18:40 WBC RBC Hgb Hct MCV MCH MCHC RDW Plt Count MPV Neut % (Auto) Lymph % (Auto) Saline % (Auto) Eos % (Auto) Baso % (Auto) Absolute Neuts (auto) Absolute Lymphs (auto) Puncture Site pH pCO2 pO2 HCO3 Total CO2 Base Excess FiO2 % Specimen Drawn By Sodium Potassium Chloride Carbon Dioxide Anion Gap BUN Creatinine Estimated GFR (MDRD) Glucose Calculated Osmolality Calcium Creatine Kinase 34 Troponin I < 0.01 < 0.01 < 0.01 07/27/16 07/27/16 07/27/16 04:50 04:50 05:15 WBC 7.7 RBC 4.66 Hgb 11.9 L Hct 37.5 MCV 80 L MCH 25.5 L MCHC 31.7 L RDW 16.8 H Plt Count 232 MPV 7.3 L Neut % (Auto) 89.7 H Lymph % (Auto) 7.3 L Saline % (Auto) 2.9 L Eos % (Auto) 0.0 Baso % (Auto) 0.1 Absolute Neuts (auto) 6.85 Absolute Lymphs (auto) 0.54 L Puncture Site Right radial pH 7.340 L pCO2 81.0 H* pO2 82.0 HCO3 43.7 H Total CO2 46.2 H Base Excess 14.0 H FiO2 % 50% Specimen Drawn By Bkl Sodium 138 Potassium 4.4 Chloride 93 L Carbon Dioxide 36 H Anion Gap 13 BUN 12 Creatinine 0.60 Estimated GFR (MDRD) > 60 Glucose 178 H Calculated Osmolality 270 Calcium 8.8 Creatine Kinase Troponin I Lab/DI/Studies Reviewed: EKG: NSR, NO ST or ST wave changes noted Chest x-ray was seen personally left upper lobe/hilar scarring is persistent however infiltrate seems to be improving somewhat Medications Enoxaparin Sodium (Lovenox) 40 mg SQ Q24H [facility] Stop: 08/09/16 17:59 Last Admin: 07/26/16 17:26 Dose: 40 mg Albuterol/Ipratropium (Duoneb) 3 ml NEB RTQ4 PRN PRN Reason: SHORTNESS OF BREATH Stop: 08/09/16 12:37 Albuterol/Ipratropium (Duoneb) 3 ml NEB RTQ6 [facility] Stop: 08/09/16 13:59 Last Admin: 07/27/16 07:43 Dose: 3 ml Alprazolam (Xanax) 0.5 mg PO TID [facility] Stop: 08/09/16 13:59 Last Admin: 07/27/16 04:14 Dose: 0.5 mg Alprazolam (Xanax) 1 mg PO HS [facility] Stop: 08/09/16 20:59 Last Admin: 07/26/16 21:58 Dose: 1 mg Cefepime HCl 1 gm/ Dextrose 100 mls @ 200 mls/hr IV Q8H [facility] Stop: 08/02/16 13:59 Last Admin: 07/27/16 04:14 Dose: 200 mls/hr Furosemide (Lasix) 40 mg PO DAILY [facility] Stop: 08/10/16 08:59 Last Admin: 07/27/16 08:11 Dose: 40 mg Fluticasone Propionate (Flovent Hfa-220) 2 puff INH RTBID [facility] Stop: 08/09/16 19:59 Last Admin: 07/27/16 07:49 Dose: 2 puff Gabapentin (Neurontin) 100 mg PO BID [facility] Stop: 08/09/16 20:59 Last Admin: 07/27/16 08:11 Dose: 100 mg Insulin Glargine (Lantus Pen) 30 units SQ BID [facility] Stop: 08/09/16 20:59 Last Admin: 07/27/16 08:10 Dose: 30 units Insulin Human Regular (Humulin R) 0 units SQ ACHS [facility] PRN Reason: Protocol Stop: 08/10/16 16:59 Levofloxacin/Dextrose (Levaquin 750 Mg) 750 mg in 150 mls @ 100 mls/hr IV Q24H [facility] Stop: 08/02/16 21:59 Last Admin: 07/26/16 21:58 Dose: 100 mls/hr Lorazepam (Ativan) 0.5 mg IV Q6H PRN PRN Reason: Anxiety or Agitation Stop: 08/09/16 16:59 Last Admin: 07/27/16 10:09 Dose: 0.5 mg Methylprednisolone Sodium Succinate (Solu-Medrol) 60 mg IV Q6H [facility] Stop: 08/09/16 15:59 Last Admin: 07/27/16 08:11 Dose: 60 mg Nicotine (Nicoderm) 14 mg TOP Q24H [facility] Stop: 08/09/16 13:59 Last Admin: 07/26/16 17:19 Dose: Not Given Oxycodone HCl (Oxycodone Immediate Release (Oxyir)) 5 mg PO Q6H PRN PRN Reason: MODERATE TO SEVERE PAIN Stop: 08/02/16 12:37 Oxycodone HCl (Oxycodone Immediate Release (Oxyir)) 5 mg PO TID [facility] Stop: 08/02/16 13:59 Last Admin: 07/27/16 04:14 Dose: 5 mg Pantoprazole Sodium (Protonix) 40 mg PO 0600,1800 [facility] Stop: 08/09/16 17:59 Last Admin: 07/27/16 04:15 Dose: 40 mg Potassium Chloride (Klor-Con M20) 40 meq PO DAILY [facility] Stop: 08/10/16 08:59 Last Admin: 07/27/16 08:09 Dose: 40 meq Ranitidine HCl (Zantac) 150 mg PO BID [facility] Stop: 08/09/16 20:59 Last Admin: 07/27/16 08:11 Dose: 150 mg Sertraline HCl (Zoloft) 100 mg PO DAILY [facility] Stop: 08/10/16 08:59 Last Admin: 07/27/16 08:11 Dose: 100 mg Sodium Chloride (Normal Saline) 1,000 mls @ 75 mls/hr IV Q24H [facility] Stop: 08/09/16 16:59 Last Admin: 07/26/16 17:19 Dose: 75 mls/hr Sucralfate (Carafate) 1 gm PO QID [facility] Stop: 08/09/16 15:59 Last Admin: 07/27/16 08:08 Dose: 1 gm Trazodone HCl (Desyrel) 50 mg PO QHS [facility] Stop: 08/09/16 20:59 Last Admin: 07/26/16 21:55 Dose: 50 mg Vancomycin HCl 1,750 mg/ (Dextrose) 517.5 mls @ 150 mls/hr IV Q18H [facility] Stop: 07/30/16 05:59 Last Admin: 07/27/16 06:46 Dose: 150 mls/hr - Assessment/Plan (1) Acute respiratory failure with hypoxia and hypercarbia Acute J96.01 - ACUTE RESPIRATORY FAILURE WITH HYPOXIA; J96.02 - ACUTE RESPIRATORY FAILURE WITH HYPERCAPNIA Comment/Plan: Currently patient is on Levaquin cefepime and vancomycin cultures are still pending therefore I would continue the current supportive care on this patient patient seems to be improving slowly she is going to be on CPAP 3 hours on an 3 hours off during the day and then she is going to stay of CPAP all night continue supportive care DVT and GI prophylaxis would continue the diuretics on this patient and continue other supportive care (2) COPD with acute exacerbation Acute J44.1 - CHRONIC OBSTRUCTIVE PULMONARY DISEASE W (ACUTE) EXACERBATION Comment/Plan: Continue current antibiotics however would cut down the steroids to 40 mg IV q.8 hours (3) Type 2 diabetes mellitus Acute E11.9 - TYPE 2 DIABETES MELLITUS WITHOUT COMPLICATIONS with diabetic arthropathy with other arthropathy D P D with skilled nursing use L C E11.618 - Type 2 diabetes mellitus with other diabetic arthropathy; Z79.4 - USP (current) use of insulin Comment/Plan: No change in current treatment (4) Pneumonia, bacterial Suspected J15.9 - UNSPECIFIED BACTERIAL PNEUMONIA Comment/Plan: Continue the current antibiotics bacterial pneumonia seems to be improving I personally saw and evaluated the patient.: Yes Case Care Discussed with: Patient Education/Counseling Given To: Patient Education/Counseling Given Regarding: Diagnosis, Treatment, Prognosis, Follow Up , Disposition Plan
[2016-07-27] MEDS: LORAZEPAM 2 MG/ML VIAL IV PRN ×2 (10:09→22:13)
[2016-07-27] MEDS: REGULAR INSULIN 100 UNITS/ML - 3 ML VIAL SQ SCH ×3 (12:33→22:17)
[2016-07-27] MEDS: NS 1,000 ML IV SCH (14:30)
[2016-07-27] MEDS: NICOTINE 14 MG PATCH TOP SCH (14:31)
[2016-07-27] MEDS: METHYLPREDNISOLONE 40 MG/1 ML VIAL IV SCH (17:04)
[2016-07-27] MEDS: ENOXAPARIN 40 MG/0.4 ML PFS SQ SCH (17:06)
--- NOTE | 2016-07-27 17:49 | GENMEDPROG ---
- Physical Examination Vital Signs and I&O: Last Vital Signs Temp 98.1 F 07/27/16 17:05 Pulse 80 07/27/16 17:05 Resp 20 07/27/16 17:05 BP 106/51 L 07/27/16 17:05 Pulse Ox 93 07/27/16 17:18 Oxygen Pulse Oxygen Saturation 93 O2 Device Nasal Cannula Oxygen Flow Rate 6 Fraction of Inspired Oxygen ( 45 FIO2) Intake & Output 07/24/16 07/25/16 07/26/16 07/27/16 23:59 23:59 23:59 23:59 Intake Total 846 2812 Output Total 1475 2700 Balance -629 112 Patient's weight 91.036 kg 87.997 kg Lymphatics: Normal (No cervical lymphadenopathy. No supraclavicular lymphadenopathy.) Respiratory: Diminished, Rhonchi, Wheezes. negative: Tachypnea Lab/DI/Studies Reviewed: Laboratory Results - last 24 hr 07/26/16 07/27/16 07/27/16 18:40 04:50 04:50 WBC 7.7 RBC 4.66 Hgb 11.9 L Hct 37.5 MCV 80 L MCH 25.5 L MCHC 31.7 L RDW 16.8 H Plt Count 232 MPV 7.3 L Neut % (Auto) 89.7 H Lymph % (Auto) 7.3 L [place] % (Auto) 2.9 L Eos % (Auto) 0.0 Baso % (Auto) 0.1 Absolute Neuts (auto) 6.85 Absolute Lymphs (auto) 0.54 L Puncture Site pH pCO2 pO2 HCO3 Total CO2 Base Excess FiO2 % Specimen Drawn By Sodium 138 Potassium 4.4 Chloride 93 L Carbon Dioxide 36 H Anion Gap 13 BUN 12 Creatinine 0.60 Estimated GFR (MDRD) > 60 Glucose 178 H POC Capillary Glucose Calculated Osmolality 270 Calcium 8.8 Troponin I < 0.01 07/27/16 07/27/16 07/27/16 05:15 11:25 16:55 WBC RBC Hgb Hct MCV MCH MCHC RDW Plt Count MPV Neut % (Auto) Lymph % (Auto) [place] % (Auto) Eos % (Auto) Baso % (Auto) Absolute Neuts (auto) Absolute Lymphs (auto) Puncture Site Right radial pH 7.340 L pCO2 81.0 H* pO2 82.0 HCO3 43.7 H Total CO2 46.2 H Base Excess 14.0 H FiO2 % 50% Specimen Drawn By Bkl Sodium Potassium Chloride Carbon Dioxide Anion Gap BUN Creatinine Estimated GFR (MDRD) Glucose POC Capillary Glucose 195 H 162 H Calculated Osmolality Calcium Troponin I PORTABLE CHEST 1 VIEW COMPARISON: CT chest 07/26/2016. Chest x-ray 07/26/2016 FINDINGS: Left hilar prominence is unchanged compatible with prominent left pulmonary artery and adjacent scarring. Patchy infiltrate lateral to the left hilum may be slightly improved and could represent superimposed pneumonia. Review of the recent CT scan shows progression of airspace disease in the superior segment of the left lower lobe compared with prior baseline studies. This could represent pneumonia. Negative for heart failure or effusion. Mild right lower lobe atelectasis again noted. IMPRESSION: Left perihilar scarring noted. Possible superimposed infiltrate in the superior segment left lower lobe which may be slightly improved from prior studies. Electronically Signed By: Manuel Catherine M.D. On: 07/27/2016 08:36 - Assessment (1) Acute respiratory failure with hypoxia and hypercarbia Acute J96.01 - ACUTE RESPIRATORY FAILURE WITH HYPOXIA; J96.02 - ACUTE RESPIRATORY FAILURE WITH HYPERCAPNIA Comment/Plan: Patient with acute respiratory failure when placed on oxygen in the emergency department her CO2 went up and she was placed on BiPAP. She will require continuous BiPAP treatment for the next 24 hours. Will monitor her response closely. (2) COPD with acute exacerbation Acute J44.1 - CHRONIC OBSTRUCTIVE PULMONARY DISEASE W (ACUTE) EXACERBATION Comment/Plan: Patient with wheezing long history of CHRONIC OBSTRUCTIVE PULMONARY DISEASE. Start nebulizers, O2, antibiotics, and oxygen support. (3) D-dimer, elevated Acute R79.89 - OTHER SPECIFIED ABNORMAL FINDINGS OF BLOOD CHEMISTRY Comment/ Plan: Will check a CTA of the patient's chest given her acute change in hypoxia. Will need to rule out pulmonary embolism. It also give us an opportunity get a better view at her lungs. There is a concern about an infiltrate in the left upper lobe. (4) Type 2 diabetes mellitus Acute E11.9 - TYPE 2 DIABETES MELLITUS WITHOUT COMPLICATIONS Qualifiers: Diabetes mellitus complication status: with diabetic arthropathy Diabetes mellitus complication detail: with other arthropathy Diabetic retinopathy severity: D Proliferative retinopathy type: P Diabetes mellitus macular edema: D Diabetes mellitus chcf insulin use: with chcf use Laterality: L Chronic kidney disease stage: C Qualified Code(s): E11.618 - Type 2 diabetes mellitus with other diabetic arthropathy; Z79.4 - long-term ( current) use of insulin Comment/Plan: Continue home medications use sliding scale insulin coverage while on steroids. (5) Pneumonia, bacterial Suspected J15.9 - UNSPECIFIED BACTERIAL PNEUMONIA Comment/Plan: Start cefepime and vancomycin check CT verification.
[2016-07-27] MEDS: ZOLPIDEM TARTRATE 5 MG TAB PO SCH (22:14)
[2016-07-27] MEDS: TRAZODONE 50 MG TAB PO SCH (22:14)
[2016-07-27] MEDS: Levofloxacin 750 mg/150 ml D5W 750 MG/150 ML RTU IV SCH (22:15)
[2016-07-28] MEDS: METHYLPREDNISOLONE 40 MG/1 ML VIAL IV SCH ×3 (00:34→16:59)
[2016-07-28] MEDS: Albuterol/Ipratropium Neb 3 ML NEB NEB SCH ×4 (01:10→19:33)
[2016-07-28] MEDS: LORAZEPAM 2 MG/ML VIAL IV PRN ×2 (03:48→23:08)
[2016-07-28 04:06] LABS: BLOOD UREA NITROGEN 19 MG/DL (7-17); CALCIUM 8.8 MG/DL (8.4-10.2); CALCULATED OSMOLALITY 267 MOs/Kg (270-290); CHLORIDE 93 mEq/L (98-107); GLUCOSE 182 MG/DL (70-99); SODIUM LEVEL 135 mEq/L (137-146)
[2016-07-28 04:13] LABS: ALLEN'S TEST PASS; BEb 12.9 (+/- 2); TCO2 43.8 MMOL/L (23-27)
[2016-07-28 04:17] LABS: ABG Draw Site Right Radial
[2016-07-28 04:18] LABS: BI-PAP 14/8 cm H2O
[2016-07-28] MEDS: SODIUM CHLORIDE 0.9% 3 ML FLUSH FLUSH SCH ×2 (06:04→16:57)
[2016-07-28] MEDS: CEFEPIME HYDROCHLORIDE 1 GM in D5W 100 ML IV SCH ×3 (06:10→23:10)
[2016-07-28] MEDS: OXYCODONE HCL 5 MG TABLET PO SCH ×3 (06:11→21:38)
[2016-07-28] MEDS: PANTOPRAZOLE 40 MG TAB PO SCH ×2 (06:11→16:58)
[2016-07-28] MEDS: ALPRAZOLAM 0.5 MG TAB PO SCH ×4 (06:11→21:39)
[2016-07-28] MEDS: REGULAR INSULIN 100 UNITS/ML - 3 ML VIAL SQ SCH ×4 (06:11→21:37)
[2016-07-28] MEDS: FLUTICASONE PROPIONATE INH SCH ×2 (07:56→19:38)
[2016-07-28] MEDS: SUCRALFATE 1 GM TAB PO SCH ×4 (09:16→21:37)
[2016-07-28] MEDS: RANITIDINE 150 MG TAB PO SCH ×2 (09:16→21:40)
[2016-07-28] MEDS: BUSPIRONE 5 MG TAB PO SCH ×2 (09:16→21:37)
[2016-07-28] MEDS: GABAPENTIN 100 MG CAP PO SCH ×2 (09:16→21:38)
[2016-07-28] MEDS: FUROSEMIDE 40 MG TAB PO SCH (09:16)
[2016-07-28] MEDS: SERTRALINE HCL 100 MG TAB PO SCH (09:16)
[2016-07-28] MEDS: POTASSIUM CHLORIDE 20 MEQ TAB PO SCH (09:16)
[2016-07-28] MEDS: GLARGINE INSULIN (LANTUS) 100 UNITS/ML PEN SQ SCH ×2 (09:17→21:38)
--- NOTE | 2016-07-28 09:51 | PCM.PULM ---
Chief Complaint: Patient breathing is relatively stable on oxygen %45 via VM and wears BIPAP overnight night. She is ambulation in room some and gets out of breath easily Current complaints: Dyspnea on exertions, PARKER, wheeze, cough, nausea this morning. No chest pain reported Medication list and notes reviewed:yes, Events from last night noted and discussed with Clinical Staff - Physical Examination Vital Signs and I&O: Last Vital Signs Temp 98 F 07/28/16 08:10 Pulse 73 07/28/16 08:10 Resp 18 07/28/16 08:10 BP 138/67 07/28/16 08:10 Pulse Ox 94 07/28/16 08:10 Oxygen Pulse Oxygen Saturation 94 O2 Device Venturi Mask Oxygen Flow Rate 6 Fraction of Inspired Oxygen ( 45 FIO2) Intake & Output 07/25/16 07/26/16 07/27/16 07/28/16 23:59 23:59 23:59 23:59 Intake Total 846 3412 1335 Output Total 1475 3500 1999 Balance -092 -88 -088 Patient's weight 91.036 kg 87.997 kg 88.706 kg General: Alert, Oriented x3, Cooperative, No acute distress, Fatigue Respiratory: Diminished (at bases) Cardiovascular: Regular rate, Regular rate and rhythm, Normal S1, No Gallops, Rubs/Murmurs, Normal S2 GI: Normal bowel sounds, Soft, Non tender, No hepatospenomegaly, No masses, Obese Extremities/Musculoskeletal: Normal pulses Skin: Warm,Dry and Intact, No rashes, No breakdown, No significant lesion Neurological: Normal Steady Gait, Normal speech, Strength at 5/5 X4 ext, Cranial nerves 3-12 NL Psych/Mental Status: Normal Affect, Cooperative, Anxious Result Diagrams: 07/27/16 04:50 07/28/16 03:26 Labs (last 24 hours): Laboratory Results - last 24 hr 07/28/16 07/28/16 07/28/16 03:26 04:05 05:26 Puncture Site Right radial pH 7.370 pCO2 72.0 H* pO2 89.0 HCO3 41.6 H Total CO2 43.8 H Base Excess 12.9 H FiO2 % 40 Mode BiPAP 14/8 Specimen Drawn By Kaytr Sodium 135 L Potassium 4.8 Chloride 93 L Carbon Dioxide 39 H Anion Gap 8 BUN 19 H Creatinine 0.60 Estimated GFR (MDRD) > 60 Glucose 182 H POC Capillary Glucose 168 H Calculated Osmolality 267 L Calcium 8.8 Lab/DI/Studies Reviewed: EKG: NSR, NO ST or ST wave changes noted Medications Enoxaparin Sodium (Lovenox) 40 mg SQ Q24H [facility] Stop: 08/09/16 17:59 Last Admin: 07/26/16 17:26 Dose: 40 mg Albuterol/Ipratropium (Duoneb) 3 ml NEB RTQ4 PRN PRN Reason: SHORTNESS OF BREATH Stop: 08/09/16 12:37 Albuterol/Ipratropium (Duoneb) 3 ml NEB RTQ6 [facility] Stop: 08/09/16 13:59 Last Admin: 07/27/16 07:43 Dose: 3 ml Alprazolam (Xanax) 0.5 mg PO TID [facility] Stop: 08/09/16 13:59 Last Admin: 07/27/16 04:14 Dose: 0.5 mg Alprazolam (Xanax) 1 mg PO HS [facility] Stop: 08/09/16 20:59 Last Admin: 07/26/16 21:58 Dose: 1 mg Cefepime HCl 1 gm/ Dextrose 100 mls @ 200 mls/hr IV Q8H [facility] Stop: 08/02/16 13:59 Last Admin: 07/27/16 04:14 Dose: 200 mls/hr Furosemide (Lasix) 40 mg PO DAILY [facility] Stop: 08/10/16 08:59 Last Admin: 07/27/16 08:11 Dose: 40 mg Fluticasone Propionate (Flovent Hfa-220) 2 puff INH RTBID [facility] Stop: 08/09/16 19:59 Last Admin: 07/27/16 07:49 Dose: 2 puff Gabapentin (Neurontin) 100 mg PO BID [facility] Stop: 08/09/16 20:59 Last Admin: 07/27/16 08:11 Dose: 100 mg Insulin Glargine (Lantus Pen) 30 units SQ BID [facility] Stop: 08/09/16 20:59 Last Admin: 07/27/16 08:10 Dose: 30 units Insulin Human Regular (Humulin R) 0 units SQ ACHS [facility] PRN Reason: Protocol Stop: 08/10/16 16:59 Levofloxacin/Dextrose (Levaquin 750 Mg) 750 mg in 150 mls @ 100 mls/hr IV Q24H [facility] Stop: 08/02/16 21:59 Last Admin: 07/26/16 21:58 Dose: 100 mls/hr Lorazepam (Ativan) 0.5 mg IV Q6H PRN PRN Reason: Anxiety or Agitation Stop: 08/09/16 16:59 Last Admin: 07/27/16 10:09 Dose: 0.5 mg Nicotine (Nicoderm) 14 mg TOP Q24H [facility] Stop: 08/09/16 13:59 Last Admin: 07/26/16 17:19 Dose: Not Given Oxycodone HCl (Oxycodone Immediate Release (Oxyir)) 5 mg PO Q6H PRN PRN Reason: MODERATE TO SEVERE PAIN Stop: 08/02/16 12:37 Oxycodone HCl (Oxycodone Immediate Release (Oxyir)) 5 mg PO TID [facility] Stop: 08/02/16 13:59 Last Admin: 07/27/16 04:14 Dose: 5 mg Pantoprazole Sodium (Protonix) 40 mg PO 0600,1800 [facility] Stop: 08/09/16 17:59 Last Admin: 07/27/16 04:15 Dose: 40 mg Potassium Chloride (Klor-Con M20) 40 meq PO DAILY [facility] Stop: 08/10/16 08:59 Last Admin: 07/27/16 08:09 Dose: 40 meq Ranitidine HCl (Zantac) 150 mg PO BID [facility] Stop: 08/09/16 20:59 Last Admin: 07/27/16 08:11 Dose: 150 mg Sertraline HCl (Zoloft) 100 mg PO DAILY [facility] Stop: 08/10/16 08:59 Last Admin: 07/27/16 08:11 Dose: 100 mg Sodium Chloride (Normal Saline) 1,000 mls @ 75 mls/hr IV Q24H [facility] Stop: 08/09/16 16:59 Last Admin: 07/26/16 17:19 Dose: 75 mls/hr Sucralfate (Carafate) 1 gm PO QID [facility] Stop: 08/09/16 15:59 Last Admin: 07/27/16 08:08 Dose: 1 gm Trazodone HCl (Desyrel) 50 mg PO QHS [facility] Stop: 08/09/16 20:59 Last Admin: 07/26/16 21:55 Dose: 50 mg Vancomycin HCl 1,750 mg/ (Dextrose) 517.5 mls @ 150 mls/hr IV Q18H [facility] Stop: 07/30/16 05:59 Last Admin: 07/27/16 06:46 Dose: 150 mls/hr - Assessment/Plan (1) Acute respiratory failure with hypoxia and hypercarbia Acute J96.01 - ACUTE RESPIRATORY FAILURE WITH HYPOXIA; J96.02 - ACUTE RESPIRATORY FAILURE WITH HYPERCAPNIA Comment/Plan: Patient is on Levaquin cefepime and vancomycin I would continue the BiPAP while she is sleeping at night to blow off her carbon dioxide and continue the oxygen during the day try to taper the oxygen down to as low as possible to keep the pulse ox just above 88-92% continue DVT and GI prophylaxis nebulizers and other supportive care since the cultures are negative I would discontinue vancomycin at this time (2) COPD with acute exacerbation Acute J44.1 - CHRONIC OBSTRUCTIVE PULMONARY DISEASE W (ACUTE) EXACERBATION Comment/Plan: Continue current antibiotics however would cut down the steroids to 20 mg IV q.8 hours (3) Type 2 diabetes mellitus Acute E11.9 - TYPE 2 DIABETES MELLITUS WITHOUT COMPLICATIONS with diabetic arthropathy with other arthropathy 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
--- NOTE | 2016-07-28 10:51 | GENMEDPROG ---
Chief Complaint: Pneumonia, COPD, still on CPAP 3 hours on a 3 hours off. Subjective Note: The patient states she is feeling just a little bit better. She still has concerns about whether the Levaquin made her sicker and I assured her that it did not. I also pointed out she is still taking it is not having any difficulty. She normally wears oxygen at home but has never had home BiPAP or CPAP Current Medication List: Reviewed Currently: Reports: Cough, SOB, Tobacco Use/Hx, Fever/Chills (Resolved). Denies : Wheezing, Nausea and Vomiting, Abdominal Pain DVT Prophylaxis: Yes - Physical Examination Vital Signs and I&O: Last Vital Signs Temp 98 F 07/28/16 08:10 Pulse 73 07/28/16 08:10 Resp 18 07/28/16 08:10 BP 138/67 07/28/16 08:10 Pulse Ox 94 07/28/16 08:10 Oxygen Pulse Oxygen Saturation 94 O2 Device Venturi Mask Oxygen Flow Rate 6 Fraction of Inspired Oxygen ( 45 FIO2) Intake & Output 07/25/16 07/26/16 07/27/16 07/28/16 23:59 23:59 23:59 23:59 Intake Total 846 3412 1335 Output Total 1475 3500 1999 Balance -9 -88 -765 Patient's weight 91.036 kg 87.997 kg 88.706 kg General: Alert, Cooperative, Mild distress (Is on a Venti mask right now), Weakness HEENT: Mucous membr. moist/pink Neck: Normal Trachea alignment, Normal inspection Lymphatics: Normal (No cervical lymphadenopathy. No supraclavicular lymphadenopathy.) Respiratory: Diminished, Rhonchi (Scattered on the left), Wheezes. negative: Tachypnea Cardiovascular: Regular rate and rhythm. negative: LE Edema GI: Normal bowel sounds, Soft, Non tender Extremities/Musculoskeletal: negative: Normal pulses (Decreased but palpable), Edema Skin: Warm,Dry and Intact Neurological: Normal speech, Normal tone Psych/Mental Status: Appropriate, Normal Affect Lab/DI/Studies Reviewed: 07/27/16 04:50 07/28/16 03:26 Laboratory Tests 07/28/16 04:05 Puncture Site Right radial pH 7.370 pCO2 72.0 H* pO2 89.0 HCO3 41.6 H Total CO2 43.8 H Base Excess 12.9 H FiO2 % 40 Mode BiPAP 14/8 - Assessment (1) Acute respiratory failure with hypoxia and hypercarbia Acute J96.01 - ACUTE RESPIRATORY FAILURE WITH HYPOXIA; J96.02 - ACUTE RESPIRATORY FAILURE WITH HYPERCAPNIA Comment/Plan: She has minimally improved with BiPAP 3 hours on and [address] Sheldon is following. Continue steroids and IV antibiotics (2) COPD with acute exacerbation Acute J44.1 - CHRONIC OBSTRUCTIVE PULMONARY DISEASE W (ACUTE) EXACERBATION Comment/Plan: Patient with wheezing long history of CHRONIC OBSTRUCTIVE PULMONARY DISEASE. Continue nebulizers, O2, antibiotics, and oxygen support. (3) D-dimer, elevated Ruled-out R79.89 - OTHER SPECIFIED ABNORMAL FINDINGS OF BLOOD CHEMISTRY Comment/Plan: No evidence of pulmonary embolus by CTA. 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 (5) Pneumonia, bacterial Suspected J15.9 - UNSPECIFIED BACTERIAL PNEUMONIA Comment/Plan: Is on cefepime and vancomycin. Cultures pending. CT shows left sided infiltrate (6) Lung nodule seen on imaging study Acute R91.1 - SOLITARY PULMONARY NODULE Comment/Plan: A right lower lobe pulmonary nodule was noted by CT. As the patient is quite ill this was not discussed with her but needs to be before discharge Case Care Discussed with: Patient, Nursing Staff Education/Counseling Given To: Patient Education/Counseling Given Regarding: Diagnosis, Treatment Total Time: 40 minutes Critical Care: No Couseling Time (>50% in counseling/coordination): No Code: 27625 (12+)
[2016-07-28] MEDS: NS 1,000 ML IV SCH (12:36)
[2016-07-28] MEDS: NICOTINE 14 MG PATCH TOP SCH (15:20)
[2016-07-28] MEDS: ENOXAPARIN 40 MG/0.4 ML PFS SQ SCH (16:58)
[2016-07-28] MEDS: ZOLPIDEM TARTRATE 5 MG TAB PO SCH (21:37)
[2016-07-28] MEDS: TRAZODONE 50 MG TAB PO SCH (21:37)
[2016-07-28] MEDS: Levofloxacin 750 mg/150 ml D5W 750 MG/150 ML RTU IV SCH (23:38)
[2016-07-29] MEDS: Albuterol/Ipratropium Neb 3 ML NEB NEB SCH ×4 (02:18→20:49)
[2016-07-29] MEDS: METHYLPREDNISOLONE 40 MG/1 ML VIAL IV SCH ×2 (02:19→08:54)
[2016-07-29] MEDS ORDERED: HEPARIN 500 UNITS/5 ML (100 UNITS/ML) SYR FLUSH PRN (02:37)
[2016-07-29] MEDS ORDERED: SODIUM CHLORIDE 0.9% 3 ML FLUSH FLUSH PRN (02:50)
[2016-07-29] MEDS: ONDANSETRON HCL 4 MG/2 ML VIAL IV PRN (04:11)
[2016-07-29 04:57] LABS: ALLEN'S TEST PASS; BEb 15.3 (+/- 2); TCO2 46.9 MMOL/L (23-27)
[2016-07-29 05:01] LABS: ABG Draw Site Right Brachial
[2016-07-29] MEDS: CEFEPIME HYDROCHLORIDE 1 GM in D5W 100 ML IV SCH ×3 (05:18→22:33)
[2016-07-29] MEDS: OXYCODONE HCL 5 MG TABLET PO SCH ×3 (05:19→20:30)
[2016-07-29] MEDS: PANTOPRAZOLE 40 MG TAB PO SCH ×2 (05:19→18:06)
[2016-07-29] MEDS: ALPRAZOLAM 0.5 MG TAB PO SCH ×4 (05:19→20:31)
[2016-07-29] MEDS: SODIUM CHLORIDE 0.9% 3 ML FLUSH FLUSH SCH ×2 (05:20→18:06)
[2016-07-29] MEDS: REGULAR INSULIN 100 UNITS/ML - 3 ML VIAL SQ SCH ×4 (05:48→22:33)
[2016-07-29 05:54] LABS: BLOOD UREA NITROGEN 19 MG/DL (7-17); CALCIUM 8.8 MG/DL (8.4-10.2); CALCULATED OSMOLALITY 269 MOs/Kg (270-290); CHLORIDE 93 mEq/L (98-107); GLUCOSE 108 MG/DL (70-99); SODIUM LEVEL 138 mEq/L (137-146)
[2016-07-29] MEDS: GLARGINE INSULIN (LANTUS) 100 UNITS/ML PEN SQ SCH ×2 (08:54→20:31)
[2016-07-29] MEDS: SUCRALFATE 1 GM TAB PO SCH ×4 (08:56→20:31)
[2016-07-29] MEDS: BUSPIRONE 5 MG TAB PO SCH ×2 (08:56→20:30)
[2016-07-29] MEDS: SERTRALINE HCL 100 MG TAB PO SCH (08:57)
[2016-07-29] MEDS: FUROSEMIDE 40 MG TAB PO SCH (08:57)
[2016-07-29] MEDS: RANITIDINE 150 MG TAB PO SCH ×2 (08:57→20:31)
[2016-07-29] MEDS: GABAPENTIN 100 MG CAP PO SCH ×2 (08:57→20:31)
[2016-07-29] MEDS: POTASSIUM CHLORIDE 20 MEQ TAB PO SCH (08:57)
[2016-07-29] MEDS: NS 1,000 ML IV SCH ×2 (09:00→12:09)
[2016-07-29] MEDS: FLUTICASONE PROPIONATE INH SCH ×2 (09:29→20:49)
--- NOTE | 2016-07-29 10:23 | PCM.PULM ---
Chief Complaint: Uneventful overnight Patient breathing is improving slowly. No hypoxia noted. Oxygen down to %35 VM this morning. On BIPAP at night and prn Current medication list reviewed:yes Notes reviewed:yes, Events from last night noted and discussed with Clinical Staff DVT/GI prophylaxis:yes - Physical Examination Vital Signs and I&O: Last Vital Signs Temp 98 F 07/29/16 08:09 Pulse 69 07/29/16 08:09 Resp 16 07/29/16 08:09 BP 132/65 07/29/16 08:09 Pulse Ox 94 07/29/16 08:09 Oxygen Pulse Oxygen Saturation 94 O2 Device Venturi Mask Oxygen Flow Rate 6 Fraction of Inspired Oxygen ( 35 FIO2) Intake & Output 07/26/16 07/27/16 07/28/16 07/29/16 23:59 23:59 23:59 23:59 Intake Total 846 3412 3519 1288 Output Total 1475 3500 5000 1500 Balance - -212 Patient's weight 91.036 kg 87.997 kg 88.706 kg 88.621 kg General: Alert, Oriented x3, No acute distress, Obese, Fatigue (little better) Respiratory: Normal - CTA, Diminished Cardiovascular: Regular rate, Regular rate and rhythm, Normal S1, No Gallops, Rubs/Murmurs, Normal S2 GI: Normal bowel sounds, Soft, Non tender, No hepatospenomegaly Extremities/Musculoskeletal: Normal pulses Skin: Warm,Dry and Intact, No rashes, No breakdown, No significant lesion Neurological: Normal Steady Gait, Normal speech, Strength at 5/5 X4 ext, Normal tone, Cranial nerves 3-12 NL Psych/Mental Status: Appropriate Result Diagrams: 07/27/16 04:50 07/29/16 05:12 Labs (last 24 hours): Laboratory Results - last 24 hr 07/28/16 07/29/16 07/29/16 20:00 03:51 04:45 Puncture Site Right brachial pH 7.370 pCO2 77.0 H* pO2 102.0 H HCO3 44.5 H Total CO2 46.9 H Base Excess 15.3 H FiO2 % 45% vm Specimen Drawn By Rakma Sodium Potassium Chloride Carbon Dioxide Anion Gap BUN Creatinine Estimated GFR (MDRD) Glucose POC Capillary Glucose 188 H 110 H Calculated Osmolality Calcium Vancomycin Trough 07/29/16 07/29/16 05:12 05:44 Puncture Site pH pCO2 pO2 HCO3 Total CO2 Base Excess FiO2 % Specimen Drawn By Sodium 138 Potassium 4.4 Chloride 93 L Carbon Dioxide 42 H Anion Gap 7 L BUN 19 H Creatinine 0.60 Estimated GFR (MDRD) > 60 Glucose 108 H POC Capillary Glucose 123 H Calculated Osmolality 269 L Calcium 8.8 Vancomycin Trough Lab/DI/Studies Reviewed: EKG: NSR, NO ST or ST wave changes noted Medications: Enoxaparin Sodium (Lovenox) 40 mg SQ Q24H [facility] Stop: 08/09/16 17:59 Last Admin: 07/26/16 17:26 Dose: 40 mg Sodium Chloride (Normal Saline) 1,000 mls @ 20 mls/hr IV Q48H [facility] Stop: 08/12/16 16:59 Albuterol/Ipratropium (Duoneb) 3 ml NEB RTQ4 PRN PRN Reason: SHORTNESS OF BREATH Stop: 08/09/16 12:37 Albuterol/Ipratropium (Duoneb) 3 ml NEB RTQ6 [facility] Stop: 08/09/16 13:59 Last Admin: 07/27/16 07:43 Dose: 3 ml Alprazolam (Xanax) 0.5 mg PO TID [facility] Stop: 08/09/16 13:59 Last Admin: 07/27/16 04:14 Dose: 0.5 mg Alprazolam (Xanax) 1 mg PO HS [facility] Stop: 08/09/16 20:59 Last Admin: 07/26/16 21:58 Dose: 1 mg Cefepime HCl 1 gm/ Dextrose 100 mls @ 200 mls/hr IV Q8H [facility] Stop: 08/02/16 13:59 Last Admin: 07/27/16 04:14 Dose: 200 mls/hr Furosemide (Lasix) 40 mg PO DAILY [facility] Stop: 08/10/16 08:59 Last Admin: 07/27/16 08:11 Dose: 40 mg Fluticasone Propionate (Flovent Hfa-220) 2 puff INH RTBID [facility] Stop: 08/09/16 19:59 Last Admin: 07/27/16 07:49 Dose: 2 puff Gabapentin (Neurontin) 100 mg PO BID [facility] Stop: 08/09/16 20:59 Last Admin: 07/27/16 08:11 Dose: 100 mg Insulin Glargine (Lantus Pen) 30 units SQ BID [facility] Stop: 08/09/16 20:59 Last Admin: 07/27/16 08:10 Dose: 30 units Insulin Human Regular (Humulin R) 0 units SQ ACHS ENRIQUE PRN Reason: Protocol Stop: 08/10/16 16:59 Levofloxacin/Dextrose (Levaquin 750 Mg) 750 mg in 150 mls @ 100 mls/hr IV Q24H [facility] Stop: 08/02/16 21:59 Last Admin: 07/26/16 21:58 Dose: 100 mls/hr Lorazepam (Ativan) 0.5 mg IV Q6H PRN PRN Reason: Anxiety or Agitation Stop: 08/09/16 16:59 Last Admin: 07/27/16 10:09 Dose: 0.5 mg Nicotine (Nicoderm) 14 mg TOP Q24H [facility] Stop: 08/09/16 13:59 Last Admin: 07/26/16 17:19 Dose: Not Given Oxycodone HCl (Oxycodone Immediate Release (Oxyir)) 5 mg PO Q6H PRN PRN Reason: MODERATE TO SEVERE PAIN Stop: 08/02/16 12:37 Oxycodone HCl (Oxycodone Immediate Release (Oxyir)) 5 mg PO TID [facility] Stop: 08/02/16 13:59 Last Admin: 07/27/16 04:14 Dose: 5 mg Pantoprazole Sodium (Protonix) 40 mg PO 0600,1800 [facility] Stop: 08/09/16 17:59 Last Admin: 07/27/16 04:15 Dose: 40 mg Potassium Chloride (Klor-Con M20) 40 meq PO DAILY [facility] Stop: 08/10/16 08:59 Last Admin: 07/27/16 08:09 Dose: 40 meq Ranitidine HCl (Zantac) 150 mg PO BID [facility] Stop: 08/09/16 20:59 Last Admin: 07/27/16 08:11 Dose: 150 mg Sertraline HCl (Zoloft) 100 mg PO DAILY [facility] Stop: 08/10/16 08:59 Last Admin: 07/27/16 08:11 Dose: 100 mg Sucralfate (Carafate) 1 gm PO QID [facility] Stop: 08/09/16 15:59 Last Admin: 07/27/16 08:08 Dose: 1 gm Trazodone HCl (Desyrel) 50 mg PO QHS [facility] Stop: 08/09/16 20:59 Last Admin: 07/26/16 21:55 Dose: 50 mg Vancomycin HCl 1,750 mg/ (Dextrose) 517.5 mls @ 150 mls/hr IV Q18H [facility] Stop: 07/30/16 05:59 Last Admin: 07/27/16 06:46 Dose: 150 mls/hr Methylprednisolone Sodium Succinate (Solu-Medrol) 20 mg IV Q8H [facility] Stop: 08/12/16 01:59 Last Admin: 07/29/16 08:54 Dose: 20 mg - Assessment/Plan (1) Acute respiratory failure with hypoxia and hypercarbia Acute J96.01 - ACUTE RESPIRATORY FAILURE WITH HYPOXIA; J96.02 - ACUTE RESPIRATORY FAILURE WITH HYPERCAPNIA Comment/Plan: Patient Levaquin and cefepime has not been able to blow off her carbon dioxide by herself and therefore is going to need to stay on BiPAP/CPAP when the patient is sleeping I would continue the current oxygen on this patient and would keep the pulse ox between 88 and 92% continue DVT and GI prophylaxis nebulizers and other supportive care would repeat chest x-ray and a blood gas in the morning (2) COPD with acute exacerbation Acute J44.1 - CHRONIC OBSTRUCTIVE PULMONARY DISEASE W (ACUTE) EXACERBATION Comment/Plan: Continue current antibiotics however would cut down the steroids prednisone 40 mg p.o. daily (3) Type 2 diabetes mellitus Acute E11.9 - TYPE 2 DIABETES MELLITUS WITHOUT COMPLICATIONS with diabetic arthropathy with other arthropathy D P D with half-way use L C E11.618 - Type 2 diabetes mellitus with other diabetic arthropathy; Z79.4 - director long term care (current) use of insulin Comment/Plan: No change in current treatment (4) Pneumonia, bacterial Suspected J15.9 - UNSPECIFIED BACTERIAL PNEUMONIA Comment/Plan: Continue the current antibiotics bacterial pneumonia seems to be improving
--- NOTE | 2016-07-29 11:03 | GENMEDPROG ---
Subjective Note: Patient is quite anxious this morning because she feels she has had multiple instructions for multiple people. She has been wearing her BiPAP. She apparently had offer while last night. She is anxious about making any changes. She is getting up to a chair with nursing and physical therapy is seeing her as well. Cough is improved Current Medication List: Reviewed Currently: Reports: Cough (Improved), SOB, Tobacco Use/Hx, Ambulating (Sats dropped to 88 when she walks about 6 feet.). Denies: Wheezing, Nausea and Vomiting, Abdominal Pain DVT Prophylaxis: Yes - Physical Examination Vital Signs and I&O: Last Vital Signs Temp 98.7 F 07/29/16 10:44 Pulse 74 07/29/16 10:44 Resp 18 07/29/16 10:44 BP 139/63 07/29/16 10:44 Pulse Ox 92 07/29/16 10:44 Oxygen Pulse Oxygen Saturation 92 O2 Device Venturi Mask Oxygen Flow Rate 6 Fraction of Inspired Oxygen ( 35 FIO2) Intake & Output 07/26/16 07/27/16 07/28/16 07/29/16 23:59 23:59 23:59 23:59 Intake Total 846 3412 3519 1288 Output Total 1475 3500 5000 1500 Balance -419 -88 -1481 -212 Patient's weight 91.036 kg 87.997 kg 88.706 kg 88.621 kg General: Alert, Cooperative, Mild distress (Is anxious.), Weakness HEENT: Mucous membr. moist/pink Neck: Normal Trachea alignment, Normal inspection Lymphatics: Normal (No cervical lymphadenopathy. No supraclavicular lymphadenopathy.) Respiratory: Diminished, Rhonchi (Improved from yesterday). negative: Tachypnea Cardiovascular: Regular rate and rhythm. negative: LE Edema GI: Normal bowel sounds, Soft, Non tender Extremities/Musculoskeletal: negative: Normal pulses (Decreased but palpable), Edema Skin: Warm,Dry and Intact Neurological: Normal speech, Normal tone Psych/Mental Status: Appropriate, Anxious Lab/DI/Studies Reviewed: Intake & Output 07/26/16 07/27/16 07/28/16 07/29/16 23:59 23:59 23:59 23:59 Intake Total 846 3412 3519 1288 Output Total 1475 3500 5000 1500 [facility] -88 -1481 -212 Patient's weight 91.036 kg 87.997 kg 88.706 kg 88.621 kg 07/27/16 04:50 07/29/16 05:12 Selected Entries 07/29/16 05:37 Delivery Mode Facial BiPAP Mask Laboratory Tests 07/28/16 07/29/16 04:05 04:45 Puncture Site Right radial Right brachial pH 7.370 7.370 pCO2 72.0 H* 77.0 H* pO2 89.0 102.0 H HCO3 41.6 H 44.5 H Total CO2 43.8 H 46.9 H Base Excess 12.9 H 15.3 H FiO2 % 40 45% vm Mode BiPAP 14/ - Assessment (1) Acute respiratory failure with hypoxia and hypercarbia Acute J96.01 - ACUTE RESPIRATORY FAILURE WITH HYPOXIA; J96.02 - ACUTE RESPIRATORY FAILURE WITH HYPERCAPNIA Comment/Plan: Patient's oxygenation is improved but her CO2 was still elevated. Will continue removing BiPAP at meals and wearing it continuously at night. I am weaning her steroids. She is still on Maxipime vancomycin and Levaquin for her left-sided pneumonia (2) COPD with acute exacerbation Acute J44.1 - CHRONIC OBSTRUCTIVE PULMONARY DISEASE W (ACUTE) EXACERBATION Comment/Plan: Patient with wheezing long history of CHRONIC OBSTRUCTIVE PULMONARY DISEASE. Continue nebulizers, O2, antibiotics, and oxygen support. (3) D-dimer, elevated Ruled-out R79.89 - OTHER SPECIFIED ABNORMAL FINDINGS OF BLOOD CHEMISTRY Comment/Plan: No evidence of pulmonary embolus by CTA. 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 Continue home medications use sliding scale insulin coverage while on steroids. (5) Pneumonia, bacterial Suspected J15.9 - UNSPECIFIED BACTERIAL PNEUMONIA Comment/Plan: Is on cefepime and vancomycin and Levaquin. Cultures negative. CT shows left sided infiltrate (6) Lung nodule seen on imaging study Acute R91.1 - SOLITARY PULMONARY NODULE Comment/Plan: A right lower lobe pulmonary nodule was noted by CT. As the patient is quite ill this was not discussed with her but needs to be before discharge Case Care Discussed with: Patient, Nursing Staff, Physical Therapy Education/Counseling Given To: Patient Education/Counseling Given Regarding: Diagnosis, Treatment, Prognosis Total Time: 35 minutes Critical Care: No Couseling Time (>50% in counseling/coordination): Yes Code: 46206 (12+)
[2016-07-29] MEDS: LORAZEPAM 2 MG/ML VIAL IV PRN ×2 (15:03→22:53)
[2016-07-29] MEDS: ENOXAPARIN 40 MG/0.4 ML PFS SQ SCH (18:05)
[2016-07-29] MEDS: TRAZODONE 50 MG TAB PO SCH (20:31)
[2016-07-29] MEDS: ZOLPIDEM TARTRATE 5 MG TAB PO SCH (20:31)
[2016-07-29] MEDS: Levofloxacin 750 mg/150 ml D5W 750 MG/150 ML RTU IV SCH (20:32)
[2016-07-29] MEDS: FLUCONAZOLE 100 MG TAB PO SCH (22:33)
[2016-07-30] MEDS: Albuterol/Ipratropium Neb 3 ML NEB NEB SCH ×4 (02:14→19:14)
[2016-07-30 05:20] LABS: ALLEN'S TEST PASS; BEb 17.7 (+/- 2); TCO2 47.9 MMOL/L (23-27)
[2016-07-30 05:28] LABS: ABG Draw Site Left Radial
[2016-07-30 05:29] LABS: BI-PAP 16/8 cm H2O
[2016-07-30] MEDS: ALPRAZOLAM 0.5 MG TAB PO SCH ×4 (06:02→21:13)
[2016-07-30] MEDS: SODIUM CHLORIDE 0.9% 3 ML FLUSH FLUSH SCH ×2 (06:02→17:07)
[2016-07-30] MEDS: PANTOPRAZOLE 40 MG TAB PO SCH ×2 (06:02→17:07)
[2016-07-30] MEDS: OXYCODONE HCL 5 MG TABLET PO SCH ×3 (06:02→21:11)
--- NOTE | 2016-07-30 08:34 | PCM.PULM ---
Chief Complaint: Patient looks some better breathing is improving. On oxygen via nasal cannula and BIPAP at night. Current medication list reviewed:yes Notes reviewed:yes, Events from last night noted and discussed with Clinical Staff DVT prophylaxis:yes - Physical Examination Vital Signs and I&O: Last Vital Signs Temp 98.0 F 07/30/16 03:44 Pulse 66 07/30/16 06:00 Resp 12 07/30/16 04:00 BP 108/54 L 07/30/16 03:44 Pulse Ox 95 07/30/16 08:00 Oxygen Pulse Oxygen Saturation 95 O2 Device Nasal Cannula Oxygen Flow Rate 3 Fraction of Inspired Oxygen ( 35 FIO2) Intake & Output 07/27/16 07/28/16 07/29/16 07/30/16 23:59 23:59 23:59 23:59 Intake Total 3412 3519 3275 450 Output Total 3500 5000 3275 500 Balance -88 -1481 0 -50 Patient's weight 87.997 kg 88.706 kg 88.621 kg 87.997 kg General: Alert, Oriented x3, No acute distress Respiratory: Normal - CTA, Diminished Cardiovascular: Regular rate, Regular rate and rhythm, Normal S1, No Gallops, Rubs/Murmurs, Normal S2 GI: Normal bowel sounds, Soft, Non tender, No masses, Obese Extremities/Musculoskeletal: Normal pulses Skin: Warm,Dry and Intact, No rashes, No significant lesion Neurological: Normal Steady Gait, Normal speech, Strength at 5/5 X4 ext, Normal tone, Cranial nerves 3-12 NL, Reflexes 2+ Psych/Mental Status: Normal Affect Result Diagrams: 07/27/16 04:50 07/29/16 05:12 Labs (last 24 hours): Laboratory Results - last 24 hr 07/30/16 07/30/16 05:10 05:26 Puncture Site Left radial pH 7.430 pCO2 69.0 H* pO2 82.0 HCO3 45.8 H Total CO2 47.9 H Base Excess 17.7 H FiO2 % .35 Mode BiPAP 16/8 Specimen Drawn By Mobil[employer] POC Capillary Glucose 70 Lab/DI/Studies Reviewed: EKG: NSR, NO ST or ST wave changes noted Cxray: 1 view Chest x-ray was seen personally patient seems to have 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 and atelectasis at the left base was noted as well with hyperinflated lung weston Medications: Enoxaparin Sodium (Lovenox) 40 mg SQ Q24H [facility] Stop: 08/09/16 17:59 Last Admin: 07/26/16 17:26 Dose: 40 mg Albuterol/Ipratropium (Duoneb) 3 ml NEB RTQ4 PRN PRN Reason: SHORTNESS OF BREATH Stop: 08/09/16 12:37 Albuterol/Ipratropium (Duoneb) 3 ml NEB RTQ6 [facility] Stop: 08/09/16 13:59 Last Admin: 07/27/16 07:43 Dose: 3 ml Alprazolam (Xanax) 0.5 mg PO TID [facility] Stop: 08/09/16 13:59 Last Admin: 07/27/16 04:14 Dose: 0.5 mg Alprazolam (Xanax) 1 mg PO HS [facility] Stop: 08/09/16 20:59 Last Admin: 07/26/16 21:58 Dose: 1 mg Cefepime HCl 1 gm/ Dextrose 100 mls @ 200 mls/hr IV Q8H [facility] Stop: 08/02/16 13:59 Last Admin: 07/27/16 04:14 Dose: 200 mls/hr Furosemide (Lasix) 40 mg PO DAILY [facility] Stop: 08/10/16 08:59 Last Admin: 07/27/16 08:11 Dose: 40 mg Fluticasone Propionate (Flovent Hfa-220) 2 puff INH RTBID [facility] Stop: 08/09/16 19:59 Last Admin: 07/27/16 07:49 Dose: 2 puff Gabapentin (Neurontin) 100 mg PO BID [facility] Stop: 08/09/16 20:59 Last Admin: 07/27/16 08:11 Dose: 100 mg Insulin Glargine (Lantus Pen) 30 units SQ BID [facility] Stop: 08/09/16 20:59 Last Admin: 07/27/16 08:10 Dose: 30 units Insulin Human Regular (Humulin R) 0 units SQ ACHS ENRIQUE PRN Reason: Protocol Stop: 08/10/16 16:59 Levofloxacin/Dextrose (Levaquin 750 Mg) 750 mg in 150 mls @ 100 mls/hr IV Q24H [facility] Stop: 08/02/16 21:59 Last Admin: 07/26/16 21:58 Dose: 100 mls/hr Nicotine (Nicoderm) 14 mg TOP Q24H [facility] Stop: 08/09/16 13:59 Last Admin: 07/26/16 17:19 Dose: Not Given Oxycodone HCl (Oxycodone Immediate Release (Oxyir)) 5 mg PO Q6H PRN PRN Reason: MODERATE TO SEVERE PAIN Stop: 08/02/16 12:37 Oxycodone HCl (Oxycodone Immediate Release (Oxyir)) 5 mg PO TID [facility] Stop: 08/02/16 13:59 Last Admin: 07/27/16 04:14 Dose: 5 mg Pantoprazole Sodium (Protonix) 40 mg PO 0600,1800 [facility] Stop: 08/09/16 17:59 Last Admin: 07/27/16 04:15 Dose: 40 mg Ranitidine HCl (Zantac) 150 mg PO BID [facility] Stop: 08/09/16 20:59 Last Admin: 07/27/16 08:11 Dose: 150 mg Sertraline HCl (Zoloft) 100 mg PO DAILY [facility] Stop: 08/10/16 08:59 Last Admin: 07/27/16 08:11 Dose: 100 mg Stop: 08/09/16 15:59 Last Admin: 07/27/16 08:08 Dose: 1 gm Trazodone HCl (Desyrel) 50 mg PO QHS [facility] Stop: 08/09/16 20:59 Last Admin: 07/26/16 21:55 Dose: 50 mg Prednisone (Deltasone, Orasone) 40 mg PO DAILYWM [facility] Stop: 08/12/16 16:59 Last Admin: 07/30/16 09:20 Dose: 40 mg Fluconazole (Diflucan) 100 mg PO HS [facility] Stop: 08/05/16 16:59 Last Admin: 07/29/16 22:33 Dose: 100 mg Lorazepam (Ativan) 0.5 mg IV Q6H PRN PRN Reason: Anxiety or Agitation Stop: 08/09/16 16:59 Last Admin: 07/29/16 22:53 Dose: 0.5 mg Sodium Chloride (Normal Saline) 1,000 mls @ 20 mls/hr IV Q48H [facility] Stop: 08/12/16 16:59 Last Admin: 07/29/16 12:09 Dose: 20 mls/hr - Assessment/Plan (1) Acute respiratory failure with hypoxia and hypercarbia Acute J96.01 - ACUTE RESPIRATORY FAILURE WITH HYPOXIA; J96.02 - ACUTE RESPIRATORY FAILURE WITH HYPERCAPNIA Comment/Plan: Uneventful overnight I would continue Levaquin and cefepime on this patient and continue BiPAP while the patient is sleeping at night continue other supportive care chest x-ray has been relatively stable patient may be able to go home soon once she is felt appropriate by the hospitalist and would follow up with me as an outpatient within 1 week or so after her discharge (2) COPD with acute exacerbation Acute J44.1 - CHRONIC OBSTRUCTIVE PULMONARY DISEASE W (ACUTE) EXACERBATION Comment/Plan: Continue current antibiotics however would continue prednisone 40 mg p.o. daily (3) Type 2 diabetes mellitus Acute E11.9 - TYPE 2 DIABETES MELLITUS WITHOUT COMPLICATIONS with diabetic arthropathy with other arthropathy D P D with equipment operator intermodal yard use L C E11.618 - Type 2 diabetes mellitus with other diabetic arthropathy; Z79.4 - intermediate school teacher (current) use of insulin Comment/Plan: No change in current treatment (4) Pneumonia, bacterial Suspected J15.9 - UNSPECIFIED BACTERIAL PNEUMONIA Comment/Plan: Continue the current antibiotics bacterial pneumonia seems to be improving
[2016-07-30] MEDS: FLUTICASONE PROPIONATE INH SCH ×2 (08:57→19:23)
[2016-07-30] MEDS: REGULAR INSULIN 100 UNITS/ML - 3 ML VIAL SQ SCH ×4 (09:19→21:19)
[2016-07-30] MEDS: CEFEPIME HYDROCHLORIDE 1 GM in D5W 100 ML IV SCH ×3 (09:19→21:15)
[2016-07-30] MEDS: PREDNISONE 20 MG TAB PO SCH (09:20)
[2016-07-30] MEDS: SUCRALFATE 1 GM TAB PO SCH ×4 (09:20→21:10)
[2016-07-30] MEDS: POTASSIUM CHLORIDE 20 MEQ TAB PO SCH (09:21)
[2016-07-30] MEDS: BUSPIRONE 5 MG TAB PO SCH ×2 (09:21→21:09)
[2016-07-30] MEDS: GLARGINE INSULIN (LANTUS) 100 UNITS/ML PEN SQ SCH ×2 (09:22→21:17)
[2016-07-30] MEDS: RANITIDINE 150 MG TAB PO SCH ×2 (09:22→21:13)
[2016-07-30] MEDS: FUROSEMIDE 40 MG TAB PO SCH (09:22)
[2016-07-30] MEDS: GABAPENTIN 100 MG CAP PO SCH ×2 (09:22→21:11)
[2016-07-30] MEDS: SERTRALINE HCL 100 MG TAB PO SCH (09:22)
--- NOTE | 2016-07-30 09:24 | DIRPT ---
CLINICAL DATA: Pneumonia. COPD exacerbation. EXAM: CHEST 2 VIEW COMPARISON: 07/27/2016 FINDINGS: Severe emphysema. Persistent ill-defined airspace opacity in the left upper lobe extending up from the left hilum. Reportedly this has been related to treated tumor in the past. Some of the visualized opacity is in the superior segment left lower lobe and as suggested on prior chest CT of 07/26/2016 may reflect superimposed pneumonia. The small right lower lobe nodule of concern on recent CT is not well seen on conventional radiography. There is some mild atelectasis at the right lung base. IMPRESSION: 1. Left upper lobe treatment related density, with some continued opacity in the superior segment left lower lobe likely reflecting some superimposed pneumonia. 2. Mild atelectasis along the right hemidiaphragm. 3. Atherosclerosis. 4. Severe emphysema. Electronically Signed By: Minh Johnston M.D. On: 07/30/2016 09:22
--- NOTE | 2016-07-30 11:53 | GENMEDPROG ---
Subjective Note: Patient is feeling somewhat better. She has less cough. Less tightness in her chest. She wore BiPAP through the day yesterday in 3 last night. Blood gas this morning looked better so she was switched to nasal cannula O2. We will change her to BiPAP only at night. She is more confident today that she will be able to manage this. She was previously on oxygen at [facility] but has not been on BiPAP. She has gotten up to the chair but needs a lot of encouragement to do that although her strength is good Current Medication List: Reviewed Currently: Reports: Cough (Improved), SOB, Tobacco Use/Hx, Ambulating (Sats dropped to 88 when she walks about 6 feet on 07/29/2016). Denies: Wheezing, Nausea and Vomiting, Abdominal Pain DVT Prophylaxis: Yes - Physical Examination Vital Signs and I&O: Last Vital Signs Temp 99.2 F 07/30/16 11:36 Pulse 68 07/30/16 11:45 Resp 16 07/30/16 11:36 BP 116/48 L 07/30/16 11:36 Pulse Ox 95 07/30/16 11:36 Oxygen Pulse Oxygen Saturation 95 O2 Device Nasal Cannula Oxygen Flow Rate 3 Fraction of Inspired Oxygen ( 35 FIO2) Intake & Output 07/27/16 07/28/16 07/29/16 07/30/16 23:59 23:59 23:59 23:59 Intake Total 3412 3519 3275 690 Output Total 3500 5000 3275 1100 Balance -88 -1481 0 -410 Patient's weight 87.997 kg 88.706 kg 88.621 kg 87.997 kg General: Alert, Cooperative, No acute distress (Less anxious today. Is wearing nasal cannula O2 only), Weakness (She feels weak but her strength is actually good and she does not need assistance with transfers) HEENT: Mucous membr. moist/pink Neck: Normal Trachea alignment, Normal inspection Lymphatics: Normal (No cervical lymphadenopathy. No supraclavicular lymphadenopathy.) Respiratory: Diminished, Rhonchi (Faint left-sided basal rhonchi). negative: Tachypnea Cardiovascular: Regular rate and rhythm. negative: LE Edema GI: Normal bowel sounds, Soft, Non tender Extremities/Musculoskeletal: negative: Normal pulses (Decreased but palpable), Edema Skin: Warm,Dry and Intact Neurological: Normal speech, Normal tone Psych/Mental Status: Appropriate, Anxious Lab/DI/Studies Reviewed: Laboratory Results - last 24 hr 07/29/16 07/29/16 07/30/16 16:23 20:04 05:10 Puncture Site Left radial pH 7.430 pCO2 69.0 H* pO2 82.0 HCO3 45.8 H Total CO2 47.9 H Base Excess 17.7 H FiO2 % .35 Mode BiPAP 16/8 Specimen Drawn By Kaytr POC Capillary Glucose 215 H 113 H 07/30/16 05:26 Puncture Site pH pCO2 pO2 HCO3 Total CO2 Base Excess FiO2 % Mode BiPAP Specimen Drawn By POC Capillary Glucose 70 Intake & Output 07/27/16 07/28/16 07/29/16 07/30/16 23:59 23:59 23:59 23:59 Intake Total 3412 3519 3275 690 Output Total 3500 5000 3275 1100 Balance -88 -1481 0 -410 Patient's weight 87.997 kg 88.706 kg 88.621 kg 87.997 kg - Assessment (1) Acute respiratory failure with hypoxia and hypercarbia Acute J96.01 - ACUTE RESPIRATORY FAILURE WITH HYPOXIA; J96.02 - ACUTE RESPIRATORY FAILURE WITH HYPERCAPNIA Comment/Plan: She will be weaned to BiPAP adjusted night and nasal cannula O2 during the day. Dr. Sheldon has recommended her steroids stay at 40 mg a day for now. She still on Maxipime and Levaquin for the left-sided pneumonia. (2) COPD with acute exacerbation Acute J44.1 - CHRONIC OBSTRUCTIVE PULMONARY DISEASE W (ACUTE) EXACERBATION Comment/Plan: Patient will remain on prednisone 40 mg a day for now. She was on oxygen prior to admission. (3) Type 2 diabetes mellitus Acute E11.9 - TYPE 2 DIABETES MELLITUS WITHOUT COMPLICATIONS Qualifiers: Diabetes mellitus complication status: with diabetic arthropathy Diabetes mellitus complication detail: with other arthropathy Diabetic retinopathy severity: D Proliferative retinopathy type: P Diabetes mellitus macular edema: D Diabetes mellitus watermelon harvesting supervisor insulin use: with watermelon harvesting supervisor use Laterality: L Chronic kidney disease stage: C Qualified Code(s): E11.618 - Type 2 diabetes mellitus with other diabetic arthropathy; Z79.4 - tank terminal gauger ( current) use of insulin Comment/Plan: Sugars have been controlled with sliding scale insulin and home medications. They are improved with decreasing steroids (4) Pneumonia, bacterial Suspected J15.9 - UNSPECIFIED BACTERIAL PNEUMONIA Comment/Plan: Vancomycin has been discontinued. She still on cefepime and Levaquin. There was a left- sided infiltrate on CT. There is still some scarring on the left on chest x- ray. (5) Lung nodule seen on imaging study Acute R91.1 - SOLITARY PULMONARY NODULE Comment/Plan: A right lower lobe pulmonary nodule was noted by CT. The patient has a previous lung cancer diagnosed 2 years ago. I discussed her abnormal CT however the patient is only focused on the pneumonia right now. Given her level of anxiety she she will likely need repeated conversations. (6) D-dimer, elevated Ruled-out R79.89 - OTHER SPECIFIED ABNORMAL FINDINGS OF BLOOD CHEMISTRY Comment/Plan: No evidence of pulmonary embolus by CTA. Case Care Discussed with: Patient, Consultants, Nursing Staff Education/Counseling Given To: Patient Education/Counseling Given Regarding: Diagnosis, Treatment, Prognosis Total Time: 35 minutes Critical Care: No Couseling Time (>50% in counseling/coordination): No Code: 37545 (12+)
[2016-07-30] MEDS: ENOXAPARIN 40 MG/0.4 ML PFS SQ SCH (17:07)
[2016-07-30] MEDS: ZOLPIDEM TARTRATE 5 MG TAB PO SCH (21:09)
[2016-07-30] MEDS: TRAZODONE 50 MG TAB PO SCH (21:10)
[2016-07-30] MEDS: FLUCONAZOLE 100 MG TAB PO SCH (21:10)
[2016-07-30] MEDS: LEVOFLOXACIN 750 MG TAB PO SCH (21:10)
[2016-07-30] MEDS: NS 1,000 ML IV SCH (21:14)
[2016-07-30] MEDS: LORAZEPAM 2 MG/ML VIAL IV PRN (23:00)
[2016-07-31] MEDS: Albuterol/Ipratropium Neb 3 ML NEB NEB SCH ×4 (01:27→20:19)
[2016-07-31] MEDS: CEFEPIME HYDROCHLORIDE 1 GM in D5W 100 ML IV SCH ×3 (05:33→21:09)
[2016-07-31] MEDS: REGULAR INSULIN 100 UNITS/ML - 3 ML VIAL SQ SCH ×4 (05:34→20:38)
[2016-07-31] MEDS: PANTOPRAZOLE 40 MG TAB PO SCH ×2 (05:36→17:17)
[2016-07-31] MEDS: OXYCODONE HCL 5 MG TABLET PO SCH ×3 (05:36→20:36)
[2016-07-31] MEDS: ALPRAZOLAM 0.5 MG TAB PO SCH ×4 (05:36→20:36)
[2016-07-31] MEDS: SODIUM CHLORIDE 0.9% 3 ML FLUSH FLUSH SCH ×2 (05:37→17:17)
[2016-07-31] MEDS: GABAPENTIN 100 MG CAP PO SCH ×2 (08:00→20:36)
[2016-07-31] MEDS: BUSPIRONE 5 MG TAB PO SCH ×2 (08:00→20:35)
[2016-07-31] MEDS: SUCRALFATE 1 GM TAB PO SCH ×4 (08:00→20:37)
[2016-07-31] MEDS: SERTRALINE HCL 100 MG TAB PO SCH (08:00)
[2016-07-31] MEDS: POTASSIUM CHLORIDE 20 MEQ TAB PO SCH (08:00)
[2016-07-31] MEDS: PREDNISONE 20 MG TAB PO SCH (08:00)
[2016-07-31] MEDS: GLARGINE INSULIN (LANTUS) 100 UNITS/ML PEN SQ SCH ×2 (08:01→21:10)
[2016-07-31] MEDS: RANITIDINE 150 MG TAB PO SCH ×2 (08:01→20:37)
[2016-07-31] MEDS: FUROSEMIDE 40 MG TAB PO SCH (08:01)
[2016-07-31] MEDS: FLUTICASONE PROPIONATE INH SCH ×2 (09:14→20:28)
--- NOTE | 2016-07-31 09:22 | PCM.PULM ---
Chief Complaint: Uneventful overnight Patient sitting at bedside breathing is improving. Still has dyspnea on exertions and requires 3-4 L/m oxygen on exertions Current medication list reviewed:yes Notes reviewed:yes - Physical Examination Vital Signs and I&O: Last Vital Signs Temp 98.1 F 07/31/16 07:43 Pulse 62 07/31/16 07:43 Resp 16 07/31/16 07:43 BP 111/60 07/31/16 07:43 Pulse Ox 97 07/31/16 08:00 Oxygen Pulse Oxygen Saturation 97 O2 Device Nasal Cannula Oxygen Flow Rate 4 Fraction of Inspired Oxygen ( 35 FIO2) Intake & Output 07/28/16 07/29/16 07/30/16 07/31/16 23:59 23:59 23:59 23:59 Intake Total 3519 3275 1252 348 Output Total 5000 3275 2050 450 Balance -1481 0 -798 -102 Patient's weight 88.706 kg 88.621 kg 87.997 kg 89.403 kg General: Alert, Oriented x3, No acute distress, Obese Respiratory: Normal - CTA, Diminished Cardiovascular: Regular rate, Regular rate and rhythm, Normal S1, No Gallops, Rubs/Murmurs, Normal S2 GI: Normal bowel sounds, Soft, Non tender, No hepatospenomegaly Extremities/Musculoskeletal: Normal pulses Skin: Warm,Dry and Intact, No rashes, No breakdown, No significant lesion Neurological: Normal Steady Gait, Normal speech, Strength at 5/5 X4 ext, Normal tone, Cranial nerves 3-12 NL Psych/Mental Status: Appropriate Result Diagrams: 07/27/16 04:50 07/29/16 05:12 Labs (last 24 hours): Laboratory Results - last 24 hr 07/30/16 07/31/16 20:18 05:34 POC Capillary Glucose 171 H 115 H Lab/DI/Studies Reviewed: EKG: NSR, NO ST or ST wave changes noted Medications Enoxaparin Sodium (Lovenox) 40 mg SQ Q24H [facility] Stop: 08/09/16 17:59 Last Admin: 07/26/16 17:26 Dose: 40 mg Albuterol/Ipratropium (Duoneb) 3 ml NEB RTQ4 PRN PRN Reason: SHORTNESS OF BREATH Stop: 08/09/16 12:37 Albuterol/Ipratropium (Duoneb) 3 ml NEB RTQ6 [facility] Stop: 08/09/16 13:59 Last Admin: 07/27/16 07:43 Dose: 3 ml Alprazolam (Xanax) 0.5 mg PO TID [facility] Stop: 08/09/16 13:59 Last Admin: 07/27/16 04:14 Dose: 0.5 mg Alprazolam (Xanax) 1 mg PO HS [facility] Stop: 08/09/16 20:59 Last Admin: 07/26/16 21:58 Dose: 1 mg Cefepime HCl 1 gm/ Dextrose 100 mls @ 200 mls/hr IV Q8H [facility] Stop: 08/02/16 13:59 Last Admin: 07/27/16 04:14 Dose: 200 mls/hr Furosemide (Lasix) 40 mg PO DAILY [facility] Stop: 08/10/16 08:59 Last Admin: 07/27/16 08:11 Dose: 40 mg Fluticasone Propionate (Flovent Hfa-220) 2 puff INH RTBID [facility] Stop: 08/09/16 19:59 Last Admin: 07/27/16 07:49 Dose: 2 puff Gabapentin (Neurontin) 100 mg PO BID [facility] Stop: 08/09/16 20:59 Last Admin: 07/27/16 08:11 Dose: 100 mg Insulin Glargine (Lantus Pen) 30 units SQ BID [facility] Stop: 08/09/16 20:59 Last Admin: 07/27/16 08:10 Dose: 30 units Insulin Human Regular (Humulin R) 0 units SQ ACHS [facility] PRN Reason: Protocol Stop: 08/10/16 16:59 Oxycodone HCl (Oxycodone Immediate Release (Oxyir)) 5 mg PO Q6H PRN PRN Reason: MODERATE TO SEVERE PAIN Stop: 08/02/16 12:37 Oxycodone HCl (Oxycodone Immediate Release (Oxyir)) 5 mg PO TID [facility] Stop: 08/02/16 13:59 Last Admin: 07/27/16 04:14 Dose: 5 mg Pantoprazole Sodium (Protonix) 40 mg PO 0600,1800 [facility] Stop: 08/09/16 17:59 Last Admin: 07/27/16 04:15 Dose: 40 mg Ranitidine HCl (Zantac) 150 mg PO BID [facility] Stop: 08/09/16 20:59 Last Admin: 07/27/16 08:11 Dose: 150 mg Sertraline HCl (Zoloft) 100 mg PO DAILY [facility] Stop: 08/10/16 08:59 Last Admin: 07/27/16 08:11 Dose: 100 mg Sucralfate (Carafate) 1 gm PO QID [facility] Stop: 08/09/16 15:59 Last Admin: 07/27/16 08:08 Dose: 1 gm Trazodone HCl (Desyrel) 50 mg PO QHS [facility] Stop: 08/09/16 20:59 Last Admin: 07/26/16 21:55 Dose: 50 mg Prednisone (Deltasone, Orasone) 40 mg PO DAILYWM [facility] Stop: 08/12/16 16:59 Last Admin: 07/30/16 09:20 Dose: 40 mg Lorazepam (Ativan) 0.5 mg IV Q6H PRN PRN Reason: Anxiety or Agitation Stop: 08/09/16 16:59 Last Admin: 07/29/16 22:53 Dose: 0.5 mg Potassium Chloride (Klor-Con M20) 40 meq PO DAILY [facility] Stop: 08/10/16 08:59 Last Admin: 07/31/16 08:00 Dose: 40 meq Sodium Chloride (Normal Saline) 1,000 mls @ 20 mls/hr IV Q48H [facility] Stop: 08/12/16 16:59 Last Admin: 07/30/16 21:14 Dose: 20 mls/hr Fluconazole (Diflucan) 100 mg PO HS [facility] Stop: 08/05/16 16:59 Last Admin: 07/30/16 21:10 Dose: 100 mg - Assessment/Plan (1) Acute respiratory failure with hypoxia and hypercarbia Acute J96.01 - ACUTE RESPIRATORY FAILURE WITH HYPOXIA; J96.02 - ACUTE RESPIRATORY FAILURE WITH HYPERCAPNIA Comment/Plan: Patient has been relatively stable breathing is improving slowly . I would continue Levaquin and cefepime on this patient and continue BiPAP while the patient is sleeping at night continue other supportive care e patient may be able to go home soon once she is felt appropriate by the hospitalist continue oxygen as needed (2) COPD with acute exacerbation Acute J44.1 - CHRONIC OBSTRUCTIVE PULMONARY DISEASE W (ACUTE) EXACERBATION Comment/Plan: Continue current antibiotics however would continue prednisone 40 mg p.o. daily (3) Type 2 diabetes mellitus Acute E11.9 - TYPE 2 DIABETES MELLITUS WITHOUT COMPLICATIONS with diabetic arthropathy with other arthropathy D P D with penitentiary use L C E11.618 - Type 2 diabetes mellitus with other diabetic arthropathy; Z79.4 - senior care (current) use of insulin Comment/Plan: No change in current treatment (4) Pneumonia, bacterial Suspected J15.9 - UNSPECIFIED BACTERIAL PNEUMONIA Comment/Plan: Continue the current antibiotics bacterial pneumonia seems to be improving
--- NOTE | 2016-07-31 11:56 | GENMEDPROG ---
Subjective Note: Patient in bed responsive follows commands. Overall breathing better ,still dyspneic with minimal physical exertion. Still coughing producing fair amount of mucus sputum no hemoptysis. P.o. intake improved Notes Reviewed: Yes Events from last night noted and discussed with Clinical Staff Current Medication List: Reviewed Currently: Reports: Cough (Improved), PARKER, SOB, Sputum, Tobacco Use/Hx, Reflux Sx, Ambulating (Sats dropped to 88 when she walks about 6 feet on 07/29/2016). Denies: Wheezing, Nausea and Vomiting, Abdominal Pain DVT Prophylaxis: Yes - Physical Examination Vital Signs and I&O: Last Vital Signs Temp 98.7 F 07/31/16 11:31 Pulse 70 07/31/16 11:31 Resp 17 07/31/16 11:31 BP 128/61 07/31/16 11:31 Pulse Ox 95 07/31/16 11:31 Oxygen Pulse Oxygen Saturation 95 O2 Device Nasal Cannula Oxygen Flow Rate 4 Fraction of Inspired Oxygen ( 35 FIO2) Intake & Output 07/28/16 07/29/16 07/30/16 07/31/16 23:59 23:59 23:59 23:59 Intake Total 3519 3275 1252 828 Output Total 5000 3275 2050 450 Balance -1481 0 -798 378 Patient's weight 88.706 kg 88.621 kg 87.997 kg 89.403 kg General: Alert, Cooperative, No acute distress (Less anxious today. Is wearing nasal cannula O2 only), Weakness (She feels weak but her strength is actually good and she does not need assistance with transfers) HEENT: Normal, PERRLA, EOMI, Anicteric Sclera, Mucous membr. moist/pink Neck: Normal Trachea alignment, Normal inspection, Limited range of motion Lymphatics: Normal (No cervical lymphadenopathy. No supraclavicular lymphadenopathy.) Respiratory: Diminished, Rhonchi (Faint left-sided basal rhonchi), Wheezes. negative: Tachypnea Cardiovascular: Regular rate and rhythm, Normal S1, Normal S2, Murmurs. negative: LE Edema GI: Normal bowel sounds, Soft, Non tender, No masses Extremities/Musculoskeletal: Edema, Cyanosis, DJD. negative: Normal pulses ( Decreased but palpable) Skin: Warm,Dry and Intact, No rashes Neurological: Normal speech, Normal tone Psych/Mental Status: Appropriate, Anxious - Assessment (1) Acute respiratory failure with hypoxia and hypercarbia Acute J96.01 - ACUTE RESPIRATORY FAILURE WITH HYPOXIA; J96.02 - ACUTE RESPIRATORY FAILURE WITH HYPERCAPNIA Comment/Plan: Very slow progress on maximal pulmonary therapy.. Continue O2 nebs and BiPAP. (2) COPD with acute exacerbation Acute J44.1 - CHRONIC OBSTRUCTIVE PULMONARY DISEASE W (ACUTE) EXACERBATION Comment/Plan: Continue nebulized bronchodilators and steroids.. (3) Pneumonia, bacterial Suspected J15.9 - UNSPECIFIED BACTERIAL PNEUMONIA Comment/Plan: Continue broad-spectrum antibiotics in the form of cefepime and Levaquin. (4) Type 2 diabetes mellitus Acute E11.9 - TYPE 2 DIABETES MELLITUS WITHOUT COMPLICATIONS Qualifiers: Diabetes mellitus complication status: with diabetic arthropathy Diabetes mellitus complication detail: with other arthropathy Diabetic retinopathy severity: D Proliferative retinopathy type: P Diabetes mellitus macular edema: D Diabetes mellitus exterminator insulin use: with care home use Laterality: L Chronic kidney disease stage: C Qualified Code(s): E11.618 - Type 2 diabetes mellitus with other diabetic arthropathy; Z79.4 - predatory animal exterminator ( current) use of insulin Comment/Plan: Monitor blood sugar continue sliding scale regular insulin. (5) Nicotine addiction Acute F17.200 - NICOTINE DEPENDENCE, UNSPECIFIED, UNCOMPLICATED Qualifiers: Nicotine product type: cigarettes Substance use status: unspecified nicotine-induced disorder Qualified Code(s): F17.219 - Nicotine dependence, cigarettes, with unspecified nicotine-induced disorders Comment/Plan: X-ray shows severe emphysema. Patient was advised to quit smoking Case Care Discussed with: Patient, Consultants, Nursing Staff, Pool Installer Education/Counseling Given To: Patient Education/Counseling Given Regarding: Diagnosis, Treatment, Prognosis, Follow Up Total Time: 45 min . Critical Care: No Code: 57198 (12+)
[2016-07-31] MEDS: ONDANSETRON HCL 4 MG/2 ML VIAL IV PRN (13:40)
[2016-07-31] MEDS: NS 1,000 ML IV SCH (16:47)
[2016-07-31] MEDS: ENOXAPARIN 40 MG/0.4 ML PFS SQ SCH (17:17)
[2016-07-31] MEDS: ZOLPIDEM TARTRATE 5 MG TAB PO SCH (20:35)
[2016-07-31] MEDS: TRAZODONE 50 MG TAB PO SCH (20:37)
[2016-07-31] MEDS: FLUCONAZOLE 100 MG TAB PO SCH (20:37)
[2016-07-31] MEDS: LEVOFLOXACIN 750 MG TAB PO SCH (20:37)
[2016-07-31] MEDS ORDERED: GLARGINE INSULIN (LANTUS) 100 UNITS/ML PEN SQ SCH (21:00)
[2016-07-31] MEDS: LORAZEPAM 2 MG/ML VIAL IV PRN (22:01)
[2016-08-01] MEDS: Albuterol/Ipratropium Neb 3 ML NEB NEB SCH ×4 (02:05→20:06)
[2016-08-01 04:44] VITALS: BMI 35.6
[2016-08-01] MEDS: CEFEPIME HYDROCHLORIDE 1 GM in D5W 100 ML IV SCH ×3 (05:31→21:32)
[2016-08-01] MEDS: OXYCODONE HCL 5 MG TABLET PO SCH ×3 (05:36→21:32)
[2016-08-01] MEDS: ALPRAZOLAM 0.5 MG TAB PO SCH ×4 (05:36→21:31)
[2016-08-01] MEDS: SODIUM CHLORIDE 0.9% 3 ML FLUSH FLUSH SCH ×2 (05:37→17:26)
[2016-08-01] MEDS: PANTOPRAZOLE 40 MG TAB PO SCH ×2 (05:37→17:26)
[2016-08-01] MEDS: REGULAR INSULIN 100 UNITS/ML - 3 ML VIAL SQ SCH ×4 (05:47→21:30)
[2016-08-01] MEDS: POTASSIUM CHLORIDE 20 MEQ TAB PO SCH (07:44)
[2016-08-01] MEDS: SUCRALFATE 1 GM TAB PO SCH ×4 (07:44→21:31)
[2016-08-01] MEDS: PREDNISONE 20 MG TAB PO SCH (07:44)
[2016-08-01] MEDS: BUSPIRONE 5 MG TAB PO SCH ×2 (07:44→21:31)
[2016-08-01] MEDS: GLARGINE INSULIN (LANTUS) 100 UNITS/ML PEN SQ SCH ×2 (07:45→21:32)
[2016-08-01] MEDS: GABAPENTIN 100 MG CAP PO SCH ×2 (07:45→21:32)
[2016-08-01] MEDS: FUROSEMIDE 40 MG TAB PO SCH (07:45)
[2016-08-01] MEDS: RANITIDINE 150 MG TAB PO SCH ×2 (07:45→21:31)
[2016-08-01] MEDS: SERTRALINE HCL 100 MG TAB PO SCH (07:46)
[2016-08-01] MEDS: FLUTICASONE PROPIONATE INH SCH ×2 (09:31→20:08)
--- NOTE | 2016-08-01 09:40 | PCM.PULM ---
Chief Complaint: Patient sitting at bedside breathing is some better today Medication list reviewed:yes Notes reviewed:yes, Events from last night noted and discussed with Clinical Staff - Physical Examination Vital Signs and I&O: Last Vital Signs Temp 98.1 F 08/01/16 08:08 Pulse 62 08/01/16 08:08 Resp 20 08/01/16 08:08 BP 136/58 L 08/01/16 08:08 Pulse Ox 95 08/01/16 08:08 Oxygen Pulse Oxygen Saturation 95 O2 Device Nasal Cannula Oxygen Flow Rate 3 Fraction of Inspired Oxygen ( 35 FIO2) Intake & Output 07/29/16 07/30/16 07/31/16 08/01/16 23:59 23:59 23:59 23:59 Intake Total 3275 1252 2352 240 Output Total 3275 2053 2600 1700 Balance 0 -526 -999 -6749 Patient's weight 88.621 kg 87.997 kg 89.403 kg 91.172 kg General: Alert, Oriented x3, Cooperative, No acute distress Respiratory: Normal - CTA, Diminished Cardiovascular: Regular rate, Regular rate and rhythm, Normal S1, No Gallops, Rubs/Murmurs, Normal S2 GI: Normal bowel sounds, Soft, Non tender, No masses, Obese Extremities/Musculoskeletal: Normal pulses Skin: Warm,Dry and Intact, No rashes, No significant lesion Neurological: Normal Steady Gait, Normal speech, Strength at 5/5 X4 ext, Cranial nerves 3-12 NL, Reflexes 2+ Psych/Mental Status: Normal Affect Result Diagrams: 07/27/16 04:50 07/29/16 05:12 Labs (last 24 hours): Laboratory Results - last 24 hr 08/01/16 05:43 POC Capillary Glucose 107 H Lab/DI/Studies Reviewed: EKG: NSR, NO ST or ST wave changes noted Medications Enoxaparin Sodium (Lovenox) 40 mg SQ Q24H [facility] Stop: 08/09/16 17:59 Last Admin: 07/26/16 17:26 Dose: 40 mg Albuterol/Ipratropium (Duoneb) 3 ml NEB RTQ4 PRN PRN Reason: SHORTNESS OF BREATH Stop: 08/09/16 12:37 Albuterol/Ipratropium (Duoneb) 3 ml NEB RTQ6 [facility] Stop: 08/09/16 13:59 Last Admin: 07/27/16 07:43 Dose: 3 ml Alprazolam (Xanax) 0.5 mg PO TID [facility] Stop: 08/09/16 13:59 Last Admin: 07/27/16 04:14 Dose: 0.5 mg Alprazolam (Xanax) 1 mg PO HS [facility] Stop: 08/09/16 20:59 Last Admin: 07/26/16 21:58 Dose: 1 mg Cefepime HCl 1 gm/ Dextrose 100 mls @ 200 mls/hr IV Q8H [facility] Stop: 08/02/16 13:59 Last Admin: 07/27/16 04:14 Dose: 200 mls/hr Fluticasone Propionate (Flovent Hfa-220) 2 puff INH RTBID [facility] Stop: 08/09/16 19:59 Last Admin: 07/27/16 07:49 Dose: 2 puff Gabapentin (Neurontin) 100 mg PO BID [facility] Stop: 08/09/16 20:59 Last Admin: 07/27/16 08:11 Dose: 100 mg Insulin Human Regular (Humulin R) 0 units SQ ACHS [facility] PRN Reason: Protocol Stop: 08/10/16 16:59 Lorazepam (Ativan) 0.5 mg IV Q6H PRN PRN Reason: Anxiety or Agitation Stop: 08/09/16 16:59 Last Admin: 07/27/16 10:09 Dose: 0.5 mg Nicotine (Nicoderm) 14 mg TOP Q24H [facility] Stop: 08/09/16 13:59 Last Admin: 07/26/16 17:19 Dose: Not Given Oxycodone HCl (Oxycodone Immediate Release (Oxyir)) 5 mg PO Q6H PRN PRN Reason: MODERATE TO SEVERE PAIN Stop: 08/02/16 12:37 Oxycodone HCl (Oxycodone Immediate Release (Oxyir)) 5 mg PO TID [facility] Stop: 08/02/16 13:59 Last Admin: 07/27/16 04:14 Dose: 5 mg Pantoprazole Sodium (Protonix) 40 mg PO 0600,1800 [facility] Stop: 08/09/16 17:59 Last Admin: 07/27/16 04:15 Dose: 40 mg Ranitidine HCl (Zantac) 150 mg PO BID [facility] Stop: 08/09/16 20:59 Last Admin: 07/27/16 08:11 Dose: 150 mg Sertraline HCl (Zoloft) 100 mg PO DAILY [facility] Stop: 08/10/16 08:59 Last Admin: 07/27/16 08:11 Dose: 100 mg Sucralfate (Carafate) 1 gm PO QID [facility] Stop: 08/09/16 15:59 Last Admin: 07/27/16 08:08 Dose: 1 gm Trazodone HCl (Desyrel) 50 mg PO QHS [facility] Stop: 08/09/16 20:59 Last Admin: 07/26/16 21:55 Dose: 50 mg Prednisone (Deltasone, Orasone) 40 mg PO DAILYWM [facility] Stop: 08/12/16 16:59 Last Admin: 07/30/16 09:20 Dose: 40 mg Lorazepam (Ativan) 0.5 mg IV Q6H PRN PRN Reason: Anxiety or Agitation Stop: 08/09/16 16:59 Last Admin: 07/29/16 22:53 Dose: 0.5 mg Potassium Chloride (Klor-Con M20) 40 meq PO DAILY [facility] Stop: 08/10/16 08:59 Last Admin: 07/31/16 08:00 Dose: 40 meq Sodium Chloride (Normal Saline) 1,000 mls @ 20 mls/hr IV Q48H [facility] Stop: 08/12/16 16:59 Last Admin: 07/30/16 21:14 Dose: 20 mls/hr Fluconazole (Diflucan) 100 mg PO HS [facility] Stop: 08/05/16 16:59 Last Admin: 07/30/16 21:10 Dose: 100 mg Insulin Glargine (Lantus Pen) 30 units SQ BID [facility] Stop: 08/09/16 20:59 Last Admin: 08/01/16 07:45 Dose: 30 units Levofloxacin (Levaquin) 750 mg PO HS [facility] Stop: 08/02/16 16:59 Last Admin: 07/31/16 20:37 Dose: 750 mg - Assessment/Plan (1) Acute respiratory failure with hypoxia and hypercarbia Acute J96.01 - ACUTE RESPIRATORY FAILURE WITH HYPOXIA; J96.02 - ACUTE RESPIRATORY FAILURE WITH HYPERCAPNIA Comment/Plan: Patient remains on cefepime and Levaquin she has been relatively stable continue BiPAP while the patient is sleeping at night continue other supportive care e patient may be able to go home soon once she is felt appropriate by the hospitalist continue oxygen as needed (2) COPD with acute exacerbation Acute J44.1 - CHRONIC OBSTRUCTIVE PULMONARY DISEASE W (ACUTE) EXACERBATION Comment/Plan: Continue current antibiotics however would continue prednisone 40 mg p.o. daily (3) Type 2 diabetes mellitus Acute E11.9 - TYPE 2 DIABETES MELLITUS WITHOUT COMPLICATIONS with diabetic arthropathy with other arthropathy D P D with penitentiary use L C E11.618 - Type 2 diabetes mellitus with other diabetic arthropathy; Z79.4 - group home (current) use of insulin Comment/Plan: No change in current treatment (4) Pneumonia, bacterial Suspected J15.9 - UNSPECIFIED BACTERIAL PNEUMONIA Comment/Plan: Continue the current antibiotics bacterial pneumonia seems to be improving
[2016-08-01] MEDS: ENOXAPARIN 40 MG/0.4 ML PFS SQ SCH (17:26)
--- NOTE | 2016-08-01 18:40 | GENMEDPROG ---
Subjective Note: Patient in chair responsive follows commands. Overall breathing better but still congested coughing producing small amount of sputum no hemoptysis. Denies any pains. Notes Reviewed: Yes Events from last night noted and discussed with Clinical Staff Current Medication List: Reviewed Currently: Reports: Cough (Improved), PARKER, SOB, Sputum, Tobacco Use/Hx, Reflux Sx, Ambulating (Sats dropped to 88 when she walks about 6 feet on 07/29/2016). Denies: Wheezing, Nausea and Vomiting, Abdominal Pain DVT Prophylaxis: Yes - Physical Examination Vital Signs and I&O: Last Vital Signs Temp 98.2 F 08/01/16 17:09 Pulse 72 08/01/16 18:00 Resp 18 08/01/16 17:09 BP 136/61 08/01/16 17:09 Pulse Ox 92 08/01/16 17:09 Oxygen Pulse Oxygen Saturation 92 O2 Device Nasal Cannula Oxygen Flow Rate 3 Fraction of Inspired Oxygen ( 35 FIO2) Intake & Output 07/29/16 07/30/16 07/31/16 08/01/16 23:59 23:59 23:59 23:59 Intake Total 3275 1252 2352 600 Output Total 3275 2050 2600 2600 Balance 0 -798 -537 -4580 Patient's weight 88.621 kg 87.997 kg 89.403 kg 91.172 kg General: Alert, Cooperative, No acute distress (Less anxious today. Is wearing nasal cannula O2 only), Weakness (She feels weak but her strength is actually good and she does not need assistance with transfers) HEENT: Normal, PERRLA, EOMI, Anicteric Sclera, Mucous membr. moist/pink Neck: Normal Trachea alignment, Normal inspection, Limited range of motion Lymphatics: Normal (No cervical lymphadenopathy. No supraclavicular lymphadenopathy.) Respiratory: Diminished, Rhonchi (Faint left-sided basal rhonchi), Wheezes. negative: Tachypnea Cardiovascular: Regular rate and rhythm, Normal S1, Normal S2, Murmurs. negative: LE Edema GI: Normal bowel sounds, Soft, Non tender, No masses Extremities/Musculoskeletal: Edema, Cyanosis, DJD. negative: Normal pulses ( Decreased but palpable) Skin: Warm,Dry and Intact, No rashes Neurological: Normal speech, Normal tone Psych/Mental Status: Appropriate, Anxious - Assessment (1) Acute respiratory failure with hypoxia and hypercarbia Acute J96.01 - ACUTE RESPIRATORY FAILURE WITH HYPOXIA; J96.02 - ACUTE RESPIRATORY FAILURE WITH HYPERCAPNIA Comment/Plan: Very slow progress on maximal pulmonary therapy.. Continue O2 nebs and BiPAP. Given persistent CO2 retention patient require BiPAP HS at home (2) COPD with acute exacerbation Acute J44.1 - CHRONIC OBSTRUCTIVE PULMONARY DISEASE W (ACUTE) EXACERBATION Comment/Plan: Continue nebulized bronchodilators and steroids.. (3) Pneumonia, bacterial Suspected J15.9 - UNSPECIFIED BACTERIAL PNEUMONIA Comment/Plan: Continue broad-spectrum antibiotics in the form of cefepime and Levaquin. (4) Type 2 diabetes mellitus Acute E11.9 - TYPE 2 DIABETES MELLITUS WITHOUT COMPLICATIONS Qualifiers: Diabetes mellitus complication status: with diabetic arthropathy Diabetes mellitus complication detail: with other arthropathy Diabetic retinopathy severity: D Proliferative retinopathy type: P Diabetes mellitus macular edema: D Diabetes mellitus [facility] insulin use: with [facility] use Laterality: L Chronic kidney disease stage: C Qualified Code(s): E11.618 - Type 2 diabetes mellitus with other diabetic arthropathy; Z79.4 - skilled nursing ( current) use of insulin Comment/Plan: Monitor blood sugar continue sliding scale regular insulin. (5) Nicotine addiction Acute F17.200 - NICOTINE DEPENDENCE, UNSPECIFIED, UNCOMPLICATED Qualifiers: Nicotine product type: cigarettes Substance use status: unspecified nicotine-induced disorder Qualified Code(s): F17.219 - Nicotine dependence, cigarettes, with unspecified nicotine-induced disorders Comment/Plan: X-ray shows severe emphysema. Patient was advised to quit smoking Case Care Discussed with: Patient, Consultants, Nursing Staff, Special Needs Bus Driver Education/Counseling Given To: Patient Education/Counseling Given Regarding: Diagnosis, Treatment, Prognosis, Follow Up Total Time: 45 min . Critical Care: No Code: 81817 (12+)
[2016-08-01] MEDS: TRAZODONE 50 MG TAB PO SCH (21:31)
[2016-08-01] MEDS: FLUCONAZOLE 100 MG TAB PO SCH (21:32)
[2016-08-01] MEDS: LEVOFLOXACIN 750 MG TAB PO SCH (21:32)
[2016-08-01] MEDS: ZOLPIDEM TARTRATE 5 MG TAB PO SCH (21:32)
[2016-08-01] MEDS: LORAZEPAM 2 MG/ML VIAL IV PRN ×2 (21:33→22:12)
[2016-08-02] MEDS: Albuterol/Ipratropium Neb 3 ML NEB NEB SCH ×3 (01:49→14:04)
[2016-08-02] MEDS: OXYCODONE HCL 5 MG TABLET PO SCH ×2 (04:51→13:43)
[2016-08-02] MEDS: ALPRAZOLAM 0.5 MG TAB PO SCH ×2 (04:52→13:44)
[2016-08-02] MEDS: PANTOPRAZOLE 40 MG TAB PO SCH (04:52)
[2016-08-02] MEDS: SODIUM CHLORIDE 0.9% 3 ML FLUSH FLUSH SCH (04:52)
[2016-08-02] MEDS: CEFEPIME HYDROCHLORIDE 1 GM in D5W 100 ML IV SCH ×2 (04:52→15:36)
[2016-08-02] MEDS: REGULAR INSULIN 100 UNITS/ML - 3 ML VIAL SQ SCH ×2 (04:52→11:55)
[2016-08-02] MEDS: GLARGINE INSULIN (LANTUS) 100 UNITS/ML PEN SQ SCH (08:39)
[2016-08-02] MEDS: SUCRALFATE 1 GM TAB PO SCH ×2 (08:42→11:55)
[2016-08-02] MEDS: POTASSIUM CHLORIDE 20 MEQ TAB PO SCH (08:42)
[2016-08-02] MEDS: PREDNISONE 20 MG TAB PO SCH (08:42)
[2016-08-02] MEDS: BUSPIRONE 5 MG TAB PO SCH (08:42)
[2016-08-02] MEDS: SERTRALINE HCL 100 MG TAB PO SCH (08:43)
[2016-08-02] MEDS: FUROSEMIDE 40 MG TAB PO SCH (08:43)
[2016-08-02] MEDS: GABAPENTIN 100 MG CAP PO SCH (08:43)
[2016-08-02] MEDS: NS 1,000 ML IV SCH ×2 (08:44→10:54)
[2016-08-02] MEDS: RANITIDINE 150 MG TAB PO SCH (08:44)
[2016-08-02] MEDS: FLUTICASONE PROPIONATE INH SCH (09:38)
[2016-08-02 11:28] VITALS: BP 121/63; TEMP 98.4
[2016-08-02 13:34] VITALS: PULSE 87
--- NOTE | 2016-08-02 13:48 | PCM.DCS92 ---
- Final/Secondary Discharge Diagnosis (1) Acute respiratory failure with hypoxia and hypercarbia Resolved J96.01 - ACUTE RESPIRATORY FAILURE WITH HYPOXIA; J96.02 - ACUTE RESPIRATORY FAILURE WITH HYPERCAPNIA Present on Admission: Yes Comment: Very slow progress on maximal pulmonary therapy.. Continue O2 nebs and BiPAP. Given persistent CO2 retention patient require BiPAP HS at home (2) COPD with acute exacerbation Resolved J44.1 - CHRONIC OBSTRUCTIVE PULMONARY DISEASE W (ACUTE) EXACERBATION Present on Admission: Yes Comment: Continue nebulized bronchodilators and steroids.. (3) Pneumonia, bacterial Suspected J15.9 - UNSPECIFIED BACTERIAL PNEUMONIA Present on Admission: Yes Comment: Continue broad-spectrum antibiotics in the form of cefepime and Levaquin. 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 (5) Nicotine addiction Acute F17.200 - NICOTINE DEPENDENCE, UNSPECIFIED, UNCOMPLICATED cigarettes unspecified nicotine-induced disorder F17.219 - Nicotine dependence, cigarettes, with unspecified nicotine-induced disorders Comment: X-ray shows severe emphysema. Patient was advised to quit smoking [facility]charge [facility]position[facility] Discharge Condition: Improved Cognitive Discharge Status: Unimpaired Fuctional Discharge Status: Independent, Walker Assistance Physician Follow up/Referrals: Bebo Samaniego MD [Primary Care Provider] - One Week Gonzalez Sheldon MD [Staff Physician] - One Week Home Medications / New Prescriptions: New Albuterol/Ipratropium Neb [Duoneb] 3 ml NEB Q6H #120 nebu Levofloxacin [Levaquin] 750 mg PO DAILY #5 tablet Cefdinir [Omnicef] 300 mg PO BID #10 cap Prednisone 10 mg PO DAILY #20 tab.ds.pk Continue Sennosides [Senexon] 17.2 mg PO DAILY PRN PRN Reason: Constipation Acetaminophen [Tylenol Extra Strength] 1,000 mg PO Q6H PRN PRN Reason: Pain Oxycodone HCl [Roxicodone] 5 mg PO Q6H PRN PRN Reason: Pain Guaifenesin [Robitussin] 10 ml PO Q6H PRN PRN Reason: Cough Phosp Acid/Dextrose/Fructose [Emetrol Oral Solution] 2 tbsp PO Q15MX4 PRN PRN Reason: Nausea Fluticasone Propionate [Flonase] 2 spray NADER DAILY PRN PRN Reason: CONGESTION/RUNNY NOSE Ergocalciferol (Vitamin D2) [Drisdol] 50,000 unit PO .MONTHLY Trazodone HCl [Desyrel] 50 mg PO QHS Temazepam [Restoril] 7.5 mg PO QHS Tiotropium [place] [Spiriva] 18 mcg INH DAILY Sucralfate [Carafate] 1 gm PO QID Sertraline HCl 100 mg PO DAILY Ranitidine HCl 150 mg PO BID Potassium Chloride [Klor-Con M20] 40 meq PO DAILY Oxycodone HCl [Roxicodone] 5 mg PO TID Ondansetron HCl [Zofran] 8 mg PO TID Omeprazole 40 mg PO BID Insulin Glargine [Lantus Pen] 30 unit SQ BID Gabapentin 100 mg PO BID Furosemide [Lasix] 40 mg PO DAILY Fluticasone Propionate [Flovent Hfa-220] 2 puff INH BID Ferrous Sulfate [Iron] 325 mg PO DAILY Fenofibrate,Micronized [Fenofibrate] 67 mg PO DAILY Vitamin B Complex [B Complete] 1 tab PO DAILY Buspirone HCl [Buspar] 15 mg PO BID Alprazolam [Xanax] 1 mg PO QHS Alprazolam [Xanax] 0.5 mg PO TID Discontinued Albuterol/Ipratropium Neb [Duoneb] 3 ml NEB Q4H PRN PRN Reason: Shortness Of Breath Levofloxacin [Levaquin] 750 mg PO .DAILY X 7D No Action Albuterol/Ipratropium Neb [Duoneb] 3 ml NEB Q6H O2 Device: Nasal Cannula Oxygen to be used after Discharge: Continuous Additional Instructions: bipap hs/ every night Diet at Discharge: Heart Healthy, Low Salt, Diabetic, High Fiber Activity: As Tolerated Call Office For: Fever over 101 F Discontinue use of:: Alcohol, All Illegal Substances, All Types of Tobacco - DC Summary Notes Hospital Course Note:: Discharge summary on patient named JACOB BRAY admitted to [facility] on 07/26/16 by Yaa Veliz MD. Date of discharge is []. Patient was initially brought to emergency room from assisted living facility on July 26 for evaluation of progressive worsening difficulties breathing cough phlegm production chest tightness and wheezing. Patient initial pulse ox on 2 L nasal cannula was 80%. Upon arrival in ED patient was found to be in severe respiratory distress, hypoxic tachypneic and tachycardic. Her initial PaO2 was 44 and pCO2 of 77. Patient required immediate emergency room Ed staff attention and BiPAP therapy and intubation was avoided. Initial chest x-ray showed post radiation changes and left upper lobe pneumonia. Patient was admitted to step-down unit treatment BiPAP therapy was continued. She has required broad-spectrum antibiotics in the form of Levaquin and cefepime, IV steroids nebulized bronchodilators and aggressive pulmonary toileting. Pulmonary status has very slowly but progressively improved and stabilized. She was seen consultation by sound effects technician and pulmonary regimen was optimized. Her ABGs showed persistent CO2 retention and BiPAP therapy was continued overnight. Based on Pulmonary recommendation BiPAP device was arranged for patient home care. She was seen by PT and made some progress with therapy by the time of discharge was able to ambulate short distance with minimal exertional dyspnea. Outpatient regimen for her chronic medical conditions can was continued and during hospital stay patient has remained hemodynamically stable. On August 02 he was cleared for discharge by sound effects technician and in clinically improved condition she has been transferred back to assisted living facility. Smoking cessation counseling was provided the patient during this hospital stay. Discharge plan discussed with the patient personally, post discharge follow-up care and arrange for as well. Total Time: 45 min . Code: 49240 (>30min.) - Physical Exam Vital Signs: Last Vital Signs Temp 98.4 F 08/02/16 11:28 Pulse 87 08/02/16 12:00 Resp 18 08/02/16 11:28 BP 121/63 08/02/16 11:28 Pulse Ox 92 08/02/16 11:28 Oxygen Pulse Oxygen Saturation 92 O2 Device Nasal Cannula Oxygen Flow Rate 3 Fraction of Inspired Oxygen ( 35 FIO2) Constitutional: No apparent distress, Alert Oriented to: Time, Person - HEENT Head: Normal (normocephalic, atraumatic.), Other (No cervical lymphadenopathy. No supraclavicular lymphadenopathy. Neck: No palpable mass, supple , trachea midline.) Eye: Normal (pupils equal, reactive to light, and round; EOMI, Sclera white) Oropharynx: Normal (Pharynx: Moist without exudate,Gums-no swelling, No oropharyngeal lesions or erythema, Mucous membranes are dry.) Nose: No Symptoms Reported (septum midline, Nares patent, without discharge or bleeding.) - Respiratory/Cardiovascular Respiratory: Diminished, Rhonchi (Faint left-sided basal rhonchi), Wheezes. negative: Tachypnea Cardiovascular: Normal, Systolic murmur - GI Auscultation: Normal (normal active sounds) Palpation: Normal (Soft,non distended,nontender. No hepatosplenomegaly.) Tenderness: Non tender (No rebound or guarding) Koroma's Sign: Negative Rectal Exam: Deferred - Exam Deferred: Yes - Musculoskeletal Back: Normal (Non-Tender) Extremities: Normal (Normal tone, DP pulses 2+ bilaterally, No cyanosis or edema bilaterally, FROM bilaterally.) - Integumentary Skin: Normal, Warm, Dry Lymphatics: Normal (No cervical lymphadenopathy. No supraclavicular lymphadenopathy.) - Neurologic Memory Impaired: Normal Motor Function: Normal Cranial Nerve: Normal Cerebellar: Normal (Babinski: toes downgoing bilaterally. Intact Finger to nose. Sensory grossly intact to light touch. Intact rapid alternating movements bilaterally. No pronator drift.), Ataxia Mood Description: Normal (Fully oriented. Normal and appropriate affect.), Anxious Perception: Normal (Normal and appropriate affect.) - Other Exam Other Exam Findings: Allergies aspirin Allergy (Verified 07/27/16 04:23) Rash-Generalized NSAIDS (Non-Steroidal Anti-Inflamma Allergy (Verified 07/27/16 04:23) Nausea only Penicillins Allergy (Verified 07/27/16 04:23) Rash-Generalized saccharin Allergy (Verified 07/27/16 04:23) Edema-Oral/Lip PT REPORTS ANY ARTIFICAL SWEETENER CAUSES "MY FACE TO SWELL" Sulfa (Sulfonamide Antibiotics) [Sulfa(Sulfonamide Antibiotics)] Allergy ( Verified 07/27/16 04:23) Edema-Oral/Lip PER PT Tetracyclines Allergy (Verified 07/27/16 04:23) Rash-Generalized Discharge Home Medication List Acetaminophen [Tylenol Extra Strength] 1,000 mg PO Q6H PRN 07/26/16 [History Confirmed 07/26/16] Albuterol/Ipratropium Neb [Duoneb] 3 ml NEB Q6H 07/26/16 [History Confirmed ] Alprazolam [Xanax] 0.5 mg PO TID 07/26/16 [History Confirmed 07/26/16] Alprazolam [Xanax] 1 mg PO QHS 07/26/16 [History Confirmed 07/26/16] Buspirone HCl [Buspar] 15 mg PO BID 07/26/16 [History Confirmed 07/26/16] Ergocalciferol (Vitamin D2) [Drisdol] 50,000 unit PO .MONTHLY 07/26/16 [History Confirmed 07/26/16] Fenofibrate,Micronized [Fenofibrate] 67 mg PO DAILY 07/26/16 [History Confirmed 07/26/16] Ferrous Sulfate [Iron] 325 mg PO DAILY 07/26/16 [History Confirmed 07/26/16] Fluticasone Propionate [Flonase] 2 spray NADER DAILY PRN 07/26/16 [History Confirmed 07/26/16] Fluticasone Propionate [Flovent Hfa-220] 2 puff INH BID 07/26/16 [History Confirmed 07/26/16] Furosemide [Lasix] 40 mg PO DAILY 07/26/16 [History Confirmed 07/26/16] Gabapentin 100 mg PO BID 07/26/16 [History Confirmed 07/26/16] Guaifenesin [Robitussin] 10 ml PO Q6H PRN 07/26/16 [History Confirmed 07/26/16] Insulin Glargine [Lantus Pen] 30 unit SQ BID 07/26/16 [History Confirmed ] Omeprazole 40 mg PO BID 07/26/16 [History Confirmed 07/26/16] Ondansetron HCl [Zofran] 8 mg PO TID 07/26/16 [History Confirmed 07/26/16] Oxycodone HCl [Roxicodone] 5 mg PO Q6H PRN 07/26/16 [History Confirmed 07/26/16] Oxycodone HCl [Roxicodone] 5 mg PO TID 07/26/16 [History Confirmed 07/26/16] Phosp Acid/Dextrose/Fructose [Emetrol Oral Solution] 2 tbsp PO Q15MX4 PRN [History Confirmed 07/26/16] Potassium Chloride [Klor-Con M20] 40 meq PO DAILY 07/26/16 [History Confirmed ] Ranitidine HCl 150 mg PO BID 07/26/16 [History Confirmed 07/26/16] Sennosides [Senexon] 17.2 mg PO DAILY PRN 07/26/16 [History Confirmed 07/26/16] Sertraline HCl 100 mg PO DAILY 07/26/16 [History Confirmed 07/26/16] Sucralfate [Carafate] 1 gm PO QID 07/26/16 [History Confirmed 07/26/16] Temazepam [Restoril] 7.5 mg PO QHS 07/26/16 [History Confirmed 07/26/16] Tiotropium [place] [Spiriva] 18 mcg INH DAILY 07/26/16 [History Confirmed ] Trazodone HCl [Desyrel] 50 mg PO QHS 07/26/16 [History Confirmed 07/26/16] Vitamin B Complex [B Complete] 1 tab PO DAILY 07/26/16 [History Confirmed ] Albuterol/Ipratropium Neb [Duoneb] 3 ml NEB Q6H #120 nebu 08/02/16 [Rx] Cefdinir [Omnicef] 300 mg PO BID #10 cap 08/02/16 [Rx] Levofloxacin [Levaquin] 750 mg PO DAILY #5 tablet 08/02/16 [Rx] Prednisone 10 mg PO DAILY #20 tab.ds.pk 08/02/16 [Rx] New Discharge Medications (Rx) Albuterol/Ipratropium Neb [Duoneb] 3 ml NEB Q6H #120 nebu 08/02/16 [Rx] Cefdinir [Omnicef] 300 mg PO BID #10 cap 08/02/16 [Rx] Levofloxacin [Levaquin] 750 mg PO DAILY #5 tablet 08/02/16 [Rx] Prednisone 10 mg PO DAILY #20 tab.ds.pk 08/02/16 [Rx] Home Medications Acetaminophen [Tylenol Extra Strength] 1,000 mg PO Q6H PRN 07/26/16 Albuterol/Ipratropium Neb [Duoneb] 3 ml NEB Q6H 07/26/16 Alprazolam [Xanax] 0.5 mg PO TID 07/26/16 Alprazolam [Xanax] 1 mg PO QHS 07/26/16 Buspirone HCl [Buspar] 15 mg PO BID 07/26/16 Ergocalciferol (Vitamin D2) [Drisdol] 50,000 unit PO .MONTHLY 07/26/16 Fenofibrate,Micronized [Fenofibrate] 67 mg PO DAILY 07/26/16 Ferrous Sulfate [Iron] 325 mg PO DAILY 07/26/16 Fluticasone Propionate [Flonase] 2 spray NADER DAILY PRN 07/26/16 Fluticasone Propionate [Flovent Hfa-220] 2 puff INH BID 07/26/16 Furosemide [Lasix] 40 mg PO DAILY 07/26/16 Gabapentin 100 mg PO BID 07/26/16 Guaifenesin [Robitussin] 10 ml PO Q6H PRN 07/26/16 Insulin Glargine [Lantus Pen] 30 unit SQ BID 07/26/16 Omeprazole 40 mg PO BID 07/26/16 Ondansetron HCl [Zofran] 8 mg PO TID 07/26/16 Oxycodone HCl [Roxicodone] 5 mg PO Q6H PRN 07/26/16 Oxycodone HCl [Roxicodone] 5 mg PO TID 07/26/16 Phosp Acid/Dextrose/Fructose [Emetrol Oral Solution] 2 tbsp PO Q15MX4 PRN Potassium Chloride [Klor-Con M20] 40 meq PO DAILY 07/26/16 Ranitidine HCl 150 mg PO BID 07/26/16 Sennosides [Senexon] 17.2 mg PO DAILY PRN 07/26/16 Sertraline HCl 100 mg PO DAILY 07/26/16 Sucralfate [Carafate] 1 gm PO QID 07/26/16 Temazepam [Restoril] 7.5 mg PO QHS 07/26/16 Tiotropium [place] [Spiriva] 18 mcg INH DAILY 07/26/16 Trazodone HCl [Desyrel] 50 mg PO QHS 07/26/16 Vitamin B Complex [B Complete] 1 tab PO DAILY 07/26/16 Albuterol/Ipratropium Neb [Duoneb] 3 ml NEB Q6H #120 nebu 08/02/16 Cefdinir [Omnicef] 300 mg PO BID #10 cap 08/02/16 Levofloxacin [Levaquin] 750 mg PO DAILY #5 tablet 08/02/16 Prednisone 10 mg PO DAILY #20 tab.ds.pk 08/02/16 07/27/16 04:50 07/29/16 05:12 Abnormal Lab Results 08/01/16 08/01/16 08/02/16 17:06 20:39 11:07 POC Capillary Glucose 208 H 140 H 172 H Last Vital Signs Temp 98.4 F 08/02/16 11:28 Pulse 87 08/02/16 12:00 Resp 18 08/02/16 11:28 BP 121/63 08/02/16 11:28 Pulse Ox 92 08/02/16 11:28 Microbiology 07/26/16 10:25 Blood Blood Culture - Final No growth aerobically or anaerobically at 120 hours. NORMAL VALUE = No growth 07/26/16 10:30 Blood Blood Culture - Final No growth aerobically or anaerobically at 120 hours. NORMAL VALUE = No growth 07/27/16 08:24 Sputum Gram Stain - Final 07/27/16 08:24 Sputum Sputum Culture - Final Normal oral/respiratory emily present 07/26/16 19:45 Sputum Gram Stain - Final 07/26/16 19:45 Sputum Sputum Culture - Final Normal oral/respiratory emily present 07/26/16 10:45 Urine - Clean Catch - Midstream Urine Culture - Final Mixed skin/vaginal contaminants Active Problems Acute respiratory failure with hypoxia and hypercarbia (Acute) J96.01, J96.02 Very slow progress on maximal pulmonary therapy.. Continue O2 nebs and BiPAP. Given persistent CO2 retention patient require BiPAP HS at home COPD with acute exacerbation (Acute) J44.1 Continue nebulized bronchodilators and steroids.. Lung nodule seen on imaging study (Acute) R91.1 A right lower lobe pulmonary nodule was noted by CT. The patient has a previous lung cancer diagnosed 2 years ago. I discussed her abnormal CT however the patient is only focused on the pneumonia right now. Given her level of anxiety she she will likely need repeated conversations. Nicotine addiction (Acute) F17.200 X-ray shows severe emphysema. Patient was advised to quit smoking Type 2 diabetes mellitus (Acute) E11.9 Monitor blood sugar continue sliding scale regular insulin. Ruled-out Problems D-dimer, elevated (Ruled-out) R79.89 No evidence of pulmonary embolus by CTA. Suspected Problems Pneumonia, bacterial (Suspected) J15.9 Continue broad-spectrum antibiotics in the form of cefepime and Levaquin.
[2016-08-02] MEDS ORDERED: Medication Special Instructions SCH (14:00)
== END 2016-08-02 17:10 | DRG 189 ==
LOC: ED 10:17 → MPS3 12:41 → PCU 13:50
PROVIDERS: ADMIT Hospitalist; ATTEND Internal Medicine
PROC: 5A09357 Assistance with Respiratory Ventilation, Less than 24 Consecutive Hours, Continuous Positive Airway Pressure (ICD-10-PCS; principal; 2016-07-26)
PROC: 039B3ZZ Drainage of Right Radial Artery, Percutaneous Approach (ICD-10-PCS; 2016-07-26)
DX: J96.22 Acute and chronic respiratory failure with hypercapnia (principal); J15.9 Unspecified bacterial pneumonia; E11.618 Type 2 diabetes mellitus with other diabetic arthropathy; J44.0 Chronic obstructive pulmonary disease with (acute) lower respiratory infection; J44.1 Chronic obstructive pulmonary disease with (acute) exacerbation; J96.21 Acute and chronic respiratory failure with hypoxia; R91.1 Solitary pulmonary nodule; Z66 Do not resuscitate; Z23 Encounter for immunization; Z71.6 Tobacco abuse counseling; F17.219 Nicotine dependence, cigarettes, with unspecified nicotine-induced disorders; I10 Essential (primary) hypertension; Z79.4 Long term (current) use of insulin; R79.89 Other specified abnormal findings of blood chemistry; Z79.899 Other long term (current) drug therapy
CPT/HCPCS: 36415; 36600; 71010; 71020; 71275; 80048; 80053; 80202; 81001; 82550; 82803; 82962; 83880; 84443; 84484; 85025; 85379; 85610; 85730; 87040; 87070; 87086; 87205; 90471; 90656; 90732; 93005; 94640; 94660; 96365; 96372; 96375; 97162; 97165; 99284; 99406; A9698; G0237; J0692; J1642; J1650; J1956; J2060; J2405; J2920; J2930; J3370; J3490; J7060; J7620